=== PATIENT | female | born 2000 ===

== ENCOUNTER 2021-12-08 12:05 | Emergency (ER) | payer OTHER, SELFPAY ==
--- NOTE | ~2021-12-08 | US_ITS ---
EXAMINATION: US OBSTETRICAL ULTRASOUND CLINICAL INFORMATION: Pain and bleeding. Quantitative beta hCG 9560 COMPARISON: None. LMP: 11/05/2021. Gestational age by maternal dates is 4 weeks 5 days. Estimated date of delivery by maternal dates is 08/12/2022. TECHNIQUE: Transabdominal and transvaginal first trimester OB ultrasound FINDINGS: The uterus is normal in size. There is question of arcuate or septate-type uterus. There is an intrauterine gestational sac. [place]-rump length measures 0.2 cm suggesting gestational age of 5 weeks 6 days with estimated date of delivery of 08/04/2022. No heart activity is seen. This may be secondary to early gestational age. There is a yolk sac. The right maternal ovary measures 3 x 2.1 x 2.4 cm. There is a 1.7 x 1.6 x 2 cm right ovarian simple cyst. The left ovary measures 2.1 x 1 x 2 cm and is normal-appearing. There is a small amount of fluid in the pelvis. US/US OB <= 14 weeks fetus IMPRESSION: 1. Single intrauterine gestation with ultrasound gestational age of 5 weeks 6 days +/- 4 days. 2. Estimated date of delivery is 08/04/2022 +/- 4 days. No heart activity is seen. This may be secondary to early gestational age. Question septate or arcuate-type uterus.
--- NOTE | ~2021-12-08 | US_ITS ---
EXAMINATION: US OBSTETRICAL ULTRASOUND CLINICAL INFORMATION: Pain and bleeding. Quantitative beta hCG 9560 COMPARISON: None. LMP: 11/05/2021. Gestational age by maternal dates is 4 weeks 5 days. Estimated date of delivery by maternal dates is 08/12/2022. TECHNIQUE: Transabdominal and transvaginal first trimester OB ultrasound FINDINGS: The uterus is normal in size. There is question of arcuate or septate-type uterus. There is an intrauterine gestational sac. Onset-rump length measures 0.2 cm suggesting gestational age of 5 weeks 6 days with estimated date of delivery of 08/04/2022. No heart activity is seen. This may be secondary to early gestational age. There is a yolk sac. The right maternal ovary measures 3 x 2.1 x 2.4 cm. There is a 1.7 x 1.6 x 2 cm right ovarian simple cyst. The left ovary measures 2.1 x 1 x 2 cm and is normal-appearing. There is a small amount of fluid in the pelvis. US/US OB transvaginal IMPRESSION: 1. Single intrauterine gestation with ultrasound gestational age of 5 weeks 6 days +/- 4 days. 2. Estimated date of delivery is 08/04/2022 +/- 4 days. No heart activity is seen. This may be secondary to early gestational age. Question septate or arcuate-type uterus.
[2021-12-08 12:18] VITALS: BP 122/74; PULSE 103; RESP 18; TEMP 36.8; O2SAT 99; BMI 29.2
[2021-12-08 12:40] LABS: MANUAL DIFF FLAG NO
[2021-12-08 12:42] LABS: Appearance Urine CLEAR; Color Urine YELLOW; Glucose Urine UA NEG (NEG); Leukocyte Esterase Urine NEG (NEG); Nitrite Urine NEG (NEG); Specific Gravity - Urine <= 1.005 (1.005-1.025); Urine Blood NEG (NEG); Urine Ketones NEG (NEG); Urine Protein NEG (NEG-TRACE)
[2021-12-08 12:42] LABS: Basophils Absolute Auto 0.1 X10*3/uL (0.0-0.2); Basophils Percent Auto 0.5 % (0-2); Eosinophils Absolute Auto 0.5 X10*3/uL (0.0-0.4); Eosinophils Percent Auto 5.2 % (0-4); Hemoglobin 13.4 g/dl (12.0-16.0); Imm Gran Abs Auto 0.04 X10*3/uL (0.00-0.03); Imm Gran Pct Auto 0.4 % (0.0-0.4); Lymphocytes Absolute Auto 2.1 X10*3/uL (1.2-4.9); Lymphocytes Percent Auto 22.4 % (20-40); Mean Corpuscular HGB Conc 32.7 g/dl (31.0-35.0); Mean Corpuscular Hemoglobin 29.5 pg (27.0-33.0); Mean Corpuscular Volume 90.3 fL (80.0-98.0); Mean Platelet Volume 10.2 fL (9.4-12.3); Monocytes Absolute Auto 0.7 X10*3/uL (0.1-1.2); Monocytes Percent Auto 7.7 % (2-11); Neutrophils Percent Auto 63.8 % (45-73); Platelet Count 312 X10*3/uL (160-400); Red Blood Count 4.54 X10*6/uL (4.20-5.50); Red Cell Distribution Width 12.3 % (11.0-16.0); White Blood Count 9.4 X10*3/uL (4.8-10.8)
[2021-12-08 12:56] LABS: Anion Gap 11 (12-20); Blood Urea Nitrogen 7 mg/dL (9-16); Calcium 9.7 mg/dL (8.4-10.2); Carbon Dioxide 25 mmol/L (22-29); Chloride 106 mmol/L (96-108); Creatinine Clr Calc Pharmacy 104.6; Estimated Glomerular Filt Rate > 60; Glucose Random 84 mg/dL (60-115); Potassium 4.2 mmol/L (3.3-5.1); Sodium 138 mmol/L (135-145)
[2021-12-08 13:04] LABS: HCG Quantitative 9560 mIU/mL
--- NOTE | 2021-12-08 15:25 | ED_ITS ---
HPI - Female Genitourinary General Chief complaint: Abdominal Pain Stated complaint: 5 wks preg/ vaginal bleeding Time Seen by Provider: 12/08/21 12:08 Source: patient Mode of arrival: ambulatory Limitations: no limitations History of Present Illness HPI Narrative: LMP 11/06 no issues prior other than anemia MD elicited complaint: vaginal bleeding (spotting) Onset (ago): day(s) (occurred with wiping this AM) Severity: mild Vaginal bleeding: scant Exacerbating factors: none Relieving factors: none Associated symptoms: denies other symptoms Treatment prior to arrival: none Sexual activity: Yes Patient : Yes Related Data Allergies Allergy/AdvReac Type Severity Reaction Status Date / Time Penicillins [PENICILLINS] Allergy Intermediate HIVES Verified 10/02/20 07:53 ceftriaxone [CEFTRIAXONE] Allergy Unknown HIVES SOB, Verified 10/02/20 07:53 anaphylaxis cinnamon [CINNAMON] Allergy Unknown HIVES Unverified 08/08/20 17:40 penicillin G Allergy Unknown anaphylaxis Verified 10/02/20 07:53 Review of Systems Review of Systems: Constitutional : No Fever, No Chills ENT/Mouth : No sore throat, No Rhinorrhea Eyes: No Eye Pain, No Redness Cardiovascular : No Chest Pain, No SOB Respiratory : No Cough, No Sputum, No Wheezing Gastrointestinal : no Nausea, No Vomiting, No Diarrhea, no abdominal pain, Genitourinary : positive irregular bleeding, No Dysuria, No Urinary Frequency, no pelvic pain Musculoskeletal : No Myalgias Skin : No rash Neuro : No Weakness, No Headache Psych : No Anxiety/Panic, No Depression Heme/Lymph: No bruising, No Lymphadenopathy Endocrine : No Polyuria, No Polydipsia All other systems reviewed and are negative [facility] Past Medical History Attestation statement: The following information was validated with the patient. Medical History Anemia Surgical History (Updated 10/02/20 @ 07:53 by GAGE Morrison) History of wisdom tooth extraction Family History Family History (Updated 10/02/20 @ 07:53 by GAGE Morrison) Father No problems noted. Mother No problems noted. Social History Social History (Updated 12/08/21 @ 15:37 by Lilliana Gaspar DO) Patient Tobacco Use Status: Never used Tobacco Advance Directives: No Advance Directives Information Provided: No Patient : Yes Physical Exam Vital Signs: Vital Signs: Last Vital Signs Temp 98.2 F 12/08/21 12:18 Pulse 103 H 12/08/21 12:18 Resp 18 12/08/21 12:18 BP 122/74 12/08/21 12:18 Pulse Ox 99 12/08/21 12:18 BMI result Body Mass Index 29.2 Appearance: Alert. Oriented X3. No acute distress. Eyes: Pupils equal, round and reactive to light. ENT: Pharynx normal. Neck: Normal inspection. Neck supple. CVS: Normal heart rate and rhythm. Pulses normal. Respiratory: No respiratory distress. Breath sounds normal. Abdomen: Soft and nontender. : deferred at this time due to room capacity - in US no bleeding noted Skin: Skin warm and dry. Normal skin color. Normal skin turgor. Extremities: No lower extremity edema. No calf ttp Neuro: Oriented X 3. No motor deficit. No sensory deficit. Course Course Course Narrative: Rh positive - no need for rhogam MDM - Female Genitourinary MDM Narrative Medical decision making narrative: 21 yo female - here with spotting this AM no clots, no pain, not toxic exam at this time Rh status, quant and US to evaluate for ectopic - send home with precautions and OB follow up Lab Data Result diagrams: 12/08/21 12:29 12/08/21 12:29 Labs: Lab Results 12/08/21 12/08/21 12/08/21 Range/Units 12:29 12:29 12:29 WBC 9.4 (4.8-10.8) X10*3/uL RBC 4.54 (4.20-5.50) X10*6/uL Hgb 13.4 (12.0-16.0) g/dl Hct 41.0 (37.0-47.0) % MCV 90.3 (80.0-98.0) fL MCH 29.5 (27.0-33.0) pg MCHC 32.7 (31.0-35.0) g/dl RDW 12.3 (11.0-16.0) % Plt Count 312 (160-400) X10*3/uL MPV 10.2 (9.4-12.3) fL Immature Gran % (Auto) 0.4 (0.0-0.4) % Neut % (Auto) 63.8 (45-73) % Lymph % (Auto) 22.4 (20-40) % [place] % (Auto) 7.7 (2-11) % Eos % (Auto) 5.2 H (0-4) % Baso % (Auto) 0.5 (0-2) % Lymph # (Auto) 2.1 (1.2-4.9) X10*3/uL [place] # (Auto) 0.7 (0.1-1.2) X10*3/uL Eos # (Auto) 0.5 H (0.0-0.4) X10*3/uL Baso # (Auto) 0.1 (0.0-0.2) X10*3/uL Abs Immat Gran (auto) 0.04 H (0.00-0.03) X10*3/uL Absolute Neuts (auto) 6.0 (2.0-8.3) x10*3/uL Absolute Nucleated RBC 0.000 (0.0-0.012) X10*3/uL Nucleated RBC % (auto) 0.0 (0.0-0.2) /100WBC Sodium 138 (135-145) mmol/L Potassium 4.2 (3.3-5.1) mmol/L Chloride 106 (96-108) mmol/L Carbon Dioxide 25 (22-29) mmol/L Anion Gap 11 L (12-20) BUN 7 L (9-16) mg/dL Creatinine 0.78 (0.5-1.4) mg/dL Estim Creat Clear Calc 104.6 Estimated GFR > 60 Random Glucose 84 (60-115) mg/dL Calcium 9.7 (8.4-10.2) mg/dL Beta HCG, Quant 9560 mIU/mL Urine Color Urine Appearance Urine pH (5.0-8.0) Ur Specific [place] (1.005-1.025) Urine Protein (NEG-TRACE) MG/DL Urine Glucose (UA) (NEG) MG/DL Urine Ketones (NEG) MG/DL Urine Blood (NEG) Urine Nitrite (NEG) Ur Leukocyte Esterase (NEG) Blood Type B Positive 12/08/21 Range/Units 12:35 WBC (4.8-10.8) X10*3/uL RBC (4.20-5.50) X10*6/uL Hgb (12.0-16.0) g/dl Hct (37.0-47.0) % MCV (80.0-98.0) fL MCH (27.0-33.0) pg MCHC (31.0-35.0) g/dl RDW (11.0-16.0) % Plt Count (160-400) X10*3/uL MPV (9.4-12.3) fL Immature Gran % (Auto) (0.0-0.4) % Neut % (Auto) (45-73) % Lymph % (Auto) (20-40) % [place] % (Auto) (2-11) % Eos % (Auto) (0-4) % Baso % (Auto) (0-2) % Lymph # (Auto) (1.2-4.9) X10*3/uL [place] # (Auto) (0.1-1.2) X10*3/uL Eos # (Auto) (0.0-0.4) X10*3/uL Baso # (Auto) (0.0-0.2) X10*3/uL Abs Immat Gran (auto) (0.00-0.03) X10*3/uL Absolute Neuts (auto) (2.0-8.3) x10*3/uL Absolute Nucleated RBC (0.0-0.012) X10*3/uL Nucleated RBC % (auto) (0.0-0.2) /100WBC Sodium (135-145) mmol/L Potassium (3.3-5.1) mmol/L Chloride (96-108) mmol/L Carbon Dioxide (22-29) mmol/L Anion Gap (12-20) BUN (9-16) mg/dL Creatinine (0.5-1.4) mg/dL Estim Creat Clear Calc Estimated GFR Random Glucose (60-115) mg/dL Calcium (8.4-10.2) mg/dL Beta HCG, Quant mIU/mL Urine Color YELLOW Urine Appearance CLEAR Urine pH 6.0 (5.0-8.0) Ur Specific [place] <= 1.005 (1.005-1.025) Urine Protein NEG (NEG-TRACE) MG/DL Urine Glucose (UA) NEG (NEG) MG/DL Urine Ketones NEG (NEG) MG/DL Urine Blood NEG (NEG) Urine Nitrite NEG (NEG) Ur Leukocyte Esterase NEG (NEG) Blood Type Discharge Plan Discharge Clinical Impression: , threatened Patient Disposition: Home, Self-Care Instructions: Threatened Miscarriage (ED) Additional Instructions: return to ED for any worsening symptoms or concerns no sex for 1 week blood type B positive hcg quant 9560 call your OBGYN and repeat hormone level in 2 to 3 days to make sure they are increasing US report: 1. Single intrauterine gestation with ultrasound gestational age of? 5 weeks 6 days +/- 4 days. 2. Estimated date of delivery is 08/04/2022 +/- 4 days. No heart activity is seen. This may be secondary to early gestational age. Question septate or arcuate-type uterus. Stand Alone Forms: Work/School Release Interventions: ED Discharge Assessment Last Done: 12/08/21 17:10 Discharge Date/Time: 12/08/21 17:37
== END 2021-12-08 17:37 | disposition home or self-care (01) ==
LOC: HO.ED 17:12
PROVIDERS: Emergency Provider Emergency Medicine; PCP Internal Medicine
DX: O20.0 Threatened abortion (principal); Z3A.01 Less than 8 weeks gestation of pregnancy
CPT/HCPCS: 36415; 76801; 76817; 80048; 81003; 84702; 85025; 86900; 86901; 99283; 99284

== ENCOUNTER 2022-10-28 11:24 | Outpatient (REF) | payer OTHER, SELFPAY ==
[2022-10-28 12:12] LABS: Influenza A PCR NEGATIVE (Negative); Influenza B PCR NEGATIVE (Negative); Resp Syncy Virus RNA Qual PCR NEGATIVE (Negative); SARS COV2 PCR INHOUSE NEGATIVE (Negative)
== END 2022-10-28 11:25 | disposition home or self-care (01) ==
LOC: HO.LNP 11:24
PROVIDERS: Visit Provider Nurse Practitioner Family
DX: R09.89 Other specified symptoms and signs involving the circulatory and respiratory systems (principal); J02.9 Acute pharyngitis, unspecified; Z20.822 Contact with and (suspected) exposure to COVID-19
CPT/HCPCS: 0241U

== ENCOUNTER 2023-03-15 13:38 | Outpatient (REF) | payer OTHER, SELFPAY ==
--- NOTE | ~2023-03-15 | XR_ITS ---
Examination: Right elbow and right wrist. Clinical indications: Right wrist pain and right elbow pain. TECHNIQUE: 3 views of right elbow and 4 views of right wrist. FINDINGS: RIGHT WRIST: There is maintained intercarpal, radioulnar-carpal and carpometacarpal joint space. No bony erosive changes. No loose bodies. No acute fracture or dislocation. The soft tissues are normal. RIGHT ELBOW: There is no visible acute fracture, dislocation or subluxation. No joint effusion. The soft tissues are normal. XR/XR elbow RT 2V IMPRESSION: Unremarkable right wrist. Unremarkable right elbow.
--- NOTE | ~2023-03-15 | XR_ITS ---
Examination: Right elbow and right wrist. Clinical indications: Right wrist pain and right elbow pain. TECHNIQUE: 3 views of right elbow and 4 views of right wrist. FINDINGS: RIGHT WRIST: There is maintained intercarpal, radioulnar-carpal and carpometacarpal joint space. No bony erosive changes. No loose bodies. No acute fracture or dislocation. The soft tissues are normal. RIGHT ELBOW: There is no visible acute fracture, dislocation or subluxation. No joint effusion. The soft tissues are normal. XR/XR wrist RT 2V IMPRESSION: Unremarkable right wrist. Unremarkable right elbow.
== END 2023-03-15 13:39 | disposition home or self-care (01) ==
LOC: HO.XRAY 13:38
PROVIDERS: PCP Internal Medicine; Visit Provider Internal Medicine
DX: M25.521 Pain in right elbow (principal); M25.531 Pain in right wrist
CPT/HCPCS: 73070; 73100

== ENCOUNTER 2023-04-08 10:00 | Outpatient (RCR) | payer OTHER, SELFPAY ==
--- NOTE | 2023-03-18 15:22 | MHC.OT.EP ---
[address] [phone] Occupational Therapy Plan of Care Patient Name: Viola Dudley Date of Evaluation: 03/18/23 Diagnosis: Right forearm tendonitis Pain Location: 8-9 elbow to wrist. Pressure. Stabbing, aching Pain Score: 8 Pain Scale Used: Numeric (0 - 10) Aggravating Factors: Any hand or wrist motion. Any use of right dominant hand Alleviating Factors: Tramadol at night .CP Assessment: Pt is a 22 yo female with right upper extremity stiffness and pain due to an over use injury with home and work tasks. She reports inc weight in her 7 month old daugther and self imposed increased work load due to financial incentive contributing to this repetitive strain injury. Pt demonstrates a good improvement in wrist and hand AROM after practice to WFL with slow guarded motion. Strength is low due to pain. 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 Thank you once again for your referral.
--- NOTE | 2023-05-07 14:56 | MHC.OT.DC ---
[address] [phone] F: [phone] Occupational Therapy Discharge Note Patient Name: Viola Dudley Provider: Mark Garay Diagnosis: Right forearm tendonitis Date of Surgery: Date of Evaluation: 03/18/23 Date of Discharge: 05/07/23 Treatments to Date: 2 Cancellations to Date: No Shows to Date: 2 Discharge Status: Visit Non-compliance Discharge Summary: Pt with complaint of high pain with a long lapse in treatment due to pt no show . Wrist and hand AROM WFL Electronically Signed By: Renae Cloud OT CHT CLT Reviewed/agree with student documentation: Therapist: Please Sign and return to therapist, thank you for your referral.
== END 2023-05-07 14:57 | disposition home or self-care (01) ==
LOC: HO.OT 10:00
PROVIDERS: PCP Internal Medicine; Visit Provider Internal Medicine
DX: M77.8 Other enthesopathies, not elsewhere classified (principal)
CPT/HCPCS: 97035; 97110; 97166

== ENCOUNTER 2023-06-23 11:44 | Outpatient (AMB) | payer OTHER, SELFPAY ==
--- NOTE | 2023-06-23 11:46 | A.OFFPC_ITS ---
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 Platform Consultant: Not Required per policy Accompanied by: Self / Same As Patient Allergies Penicillins [PENICILLINS] Allergy (Intermediate, Verified 06/23/23 11:47) HIVES ceftriaxone [CEFTRIAXONE] Allergy (Unknown, Verified 06/23/23 11:47) HIVES SOB, anaphylaxis cinnamon [CINNAMON] Allergy (Unknown, Verified 06/23/23 11:47) HIVES penicillin G Allergy (Unknown, Verified 06/23/23 11:47) anaphylaxis Medication List - Last Reconciled 06/23/23 by Mark Garay MD meloxicam 15 mg PO DAILY [right arm sling As directed] tramadol 50 mg PO Q8H PRN Tobacco use date assessed: 06/23/23 Dental Screening Dental Screen Date: 06/23/23 Did you have a dental visit in the last 12 months?: Yes Did you have a dental problem in the last 6 months where you did not have access to dental care?: No Was dental information given to patient?: Patient has dentist HPI Back pain due to injury HPI Details injured upper and lower back at work lifting PFSH Medical History Anemia Surgical History History of wisdom tooth extraction Family History (Updated 06/23/23 @ 11:46 by GAGE Cruz) Father No problems noted. Mother No problems noted. Social History Housing: Apartment Patient Tobacco Use Status: Never used Tobacco e-Cigarette/Vaping Use: Never Used Second Hand Smoke Exposure: No service: No Current occupational status: employed Current occupational exposures/hazards: No Cognitive needs: No Hearing needs: No Vision needs: Yes Questionnaire PHQ-9 Over the last 2 weeks, how often have you been bothered by any of the following problems? Depression Screening Interpretation: Negative Source: Developed by Drs. Lennox Prasad, Anabella Diaz, Maurice Davis and colleagues, with an educational medina from [employer]. Thrive Questionnaire Date Thrive assessed: 02/23/23 Currently or been in a relationship where the following occur: no concerns reported ANTOINETTE-7 AMB Questionnaire ANTOINETTE-7 Date ANTOINETTE - 7 assessed: 02/23/23 Source: Developed by Drs. Lennox Prasad, Anabella Diaz, Maurice Davis and colleagues, with an educational medina from [employer]. Review of Systems Const Denies chills, Denies headache(s) and Denies weight loss ENT Denies headache(s) Card Denies chest pain, Denies syncope, Denies irregular heart rhythm and Denies dyspnea Resp Denies chest congestion, Denies cough and Denies dyspnea GI Denies abdominal pain, Denies change in stool character, Denies nausea and Denies vomiting Musc Denies deformity and Denies joint swelling Neuro Denies syncope and Denies headache(s) Physical exam (Primary Care) Vital Signs: Last Vital Signs Pulse 105 H 06/23/23 11:48 BP 110/76 06/23/23 11:48 Pulse Ox 97 06/23/23 11:48 Oxygen Delivery Method Room Air 06/23/23 11:48 BMI result Body Mass Index 34.9 Tobacco/Smoking Status: Tobacco use Status Tobacco use date assessed 06/23/23 06/23/23 11:52 Patient Tobacco Use Status Never used Tobacco 06/23/23 11:52 e-Cigarette/Vaping Use Never Used 06/23/23 11:52 Depression Screening Interpretation: Negative Thrive Assessment: Date of Thrive Assessment Date Thrive assessed 02/23/23 06/23/23 11:52 Currently or been in a relationship where the following occur: no concerns reported Const General: cooperative, comfortable and no acute distress HENMT Head: Yes normal to inspection Neck Neck: Yes normal visual inspection Chest Chest palpation & inspection: normal inspection of the chest Resp Effort & Inspection: normal respiratory effort Auscultation: clear to auscultation bilaterally Percussion: percussion normal Assessment and Plan Assessment & Plan (1) Upper back pain: Code(s): M54.9 - Dorsalgia, unspecified Plan: hot packs and rx Medications: New cyclobenzaprine 10 mg PO TID 30 tabs 2RF muscle spasm Refilled tramadol 50 mg PO Q8H PRN 20 tabs 0RF pain Coding Level of Care Code Est Pt Level 3 (93786) Diagnoses Upper back pain M54.9
[2023-06-23 11:48] VITALS: BP 110/76; PULSE 105; O2SAT 97; BMI 34.9
== END 2023-06-23 12:12 | disposition home or self-care (01) ==
PROVIDERS: PCP Internal Medicine; Visit Provider Internal Medicine
DX: M54.9 Dorsalgia, unspecified (principal)
CPT/HCPCS: 99213

== ENCOUNTER 2024-11-24 12:59 | Outpatient (AMB) | payer OTHER, SELFPAY ==
--- NOTE | 2024-11-24 13:04 | MHC.PC.OV ---
Vital Signs 11/24/24 13:06 Height 5 ft 2 in Weight 182 lb 8 oz BMI 33.4 BP 120/76 Blood Pressure Location Lt brachial Position Sitting Pulse 87 Pulse Source Pulse Oximeter Pulse Oximetry (%) 98 Oxygen Delivery Method Room Air Intake Visit Reasons: Annual PE Intake Note: Patient is here today for a physical. Pt decline flu shot today. 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: No Plugging Machine Operator: Not Required per policy Accompanied by: Self / Same As Patient Allergies Penicillins [PENICILLINS] Allergy (Intermediate, Verified 11/24/24 13:06) HIVES ceftriaxone [CEFTRIAXONE] Allergy (Unknown, Verified 11/24/24 13:06) HIVES SOB, anaphylaxis cinnamon [CINNAMON] Allergy (Unknown, Verified 11/24/24 13:06) HIVES penicillin G Allergy (Unknown, Verified 11/24/24 13:06) anaphylaxis Tobacco use date assessed: 11/24/24 Dental Screening Dental Screen Date: 11/24/24 Did you have a dental visit in the last 12 months?: Yes Did you have a dental problem in the last 6 months where you did not have access to dental care?: No Was dental information given to patient?: Patient has dentist HPI Annual PE HPI Details healthy [facility] Medical History Anemia Surgical History History of wisdom tooth extraction Family History Father No problems noted. Mother No problems noted. Social History (Updated 11/24/24 @ 13:09 by GAGE Cruz) Housing: Apartment Alcohol intake: never Patient Tobacco Use Status: Never used Tobacco e-Cigarette/Vaping Use: Never Used Second Hand Smoke Exposure: No service: No Current occupational status: employed Current occupational exposures/hazards: No Cognitive needs: No Hearing needs: No Vision needs: Yes Questionnaire PHQ-9 Over the last 2 weeks, how often have you been bothered by any of the following problems? 1. Little interest or pleasure in doing things: not at all 2. Feeling down, depressed, or hopeless: not at all 3. Trouble falling or staying asleep, or sleeping too much: several days 4. Feeling tired or having little energy: several days 5. Poor appetite or overeating: several days 6. Feeling bad about yourself - or that you are a failure or have let yourself or your family down: several days 7. Trouble concentrating on things, such as reading the newspaper or watching television: not at all 8. Moving or speaking so slowly that other people could have noticed. Or the opposite - being so fidgety or restless that you have been moving around a lot more than usual: not at all 9. Thoughts that you would be better off or of hurting yourself in some way: not at all Total score: 4 Depression Screening Interpretation: Positive Depression Screening Done: Yes Source: Developed by Drs. Lennox Prasad, Anabella Diaz, Maurice Davis and colleagues, with an educational medina from [employer]. Thrive Questionnaire Date Thrive assessed: 11/24/24 I am a: Patient What is your living situation today?: I have a steady place to live Within the past 12 months, did the food you bought not last and you didn't have the money to get more?: Sometimes True Within the past 12 months, did you worry whether your food would run out before you got money to buy more?: Sometimes True Do you have trouble paying for medicines?: No Do you have trouble getting transportation to medical appointments?: No Do you have trouble paying your heating and electricity bill?: No Do you have trouble taking care of your child, family member or friend?: No Do you have trouble with day-to-day activities such as bathing, preparing meals, shopping, managing finances, etc.?: No Are you currently unemployed and looking for a job?: No Are you interested in more education?: Yes Please select the resources that you would like help with: Food, Utilities and Childcare Currently or been in a relationship where the following occur: No concerns reported THRIVE Score: 2 AUDIT C Alcohol Use Questionnaire (AUDIT-C) 1. How often do you have a drink containing alcohol?: Never Total Score: 0 ANTOINETTE-7 AMB Questionnaire ANTOINETTE-7 Date ANTOINETTE - 7 assessed: 11/24/24 Feeling nervous, anxious, or on edge: 2 = More than half the days Not being able to stop or control worryin = More than half the days Worrying too much about different things: 2 = More than half the days Trouble relaxin = More than half the days Being so restless that it is hard to sit still: 0 = Not at all Becoming easily annoyed or irritable: 3 = Nearly every day Feeling afraid as if something awful might happen: 0 = Not at all Total ANTOINETTE-7 score (0-4 normal; 5-9 mild; 10-14 moderate; 15-21 severe): 11 Source: Developed by Drs. Lennox Prasad, Anabella Diaz, Maurice Davis and colleagues, with an educational medina from [employer]. Review of Systems Const Denies chills, Denies fatigue, Denies headache(s) and Denies weight loss Eyes Denies change in vision, Denies diplopia and Denies eye pain ENT Denies vertigo, Denies dizziness, Denies headache(s) and Denies nasal discharge Card Denies chest pain, Denies rapid heart rate and Denies dyspnea on exertion Resp Denies chest congestion, Denies cough, Denies pain with cough and Denies dyspnea on exertion GI Denies abdominal pain, Denies hematochezia and Denies change in bowel habits Musc Denies myalgias, Denies arthralgias and Denies joint swelling Skin/Breast Denies lesions and Denies unusual bruising Neuro Denies vertigo, Denies dizziness, Denies headache(s) and Denies focal weakness Endo Denies fatigue Physical exam (Primary Care) Vital Signs: Last Vital Signs Pulse 87 11/24/24 13:06 BP 120/76 11/24/24 13:06 Pulse Ox 98 11/24/24 13:06 Oxygen Delivery Method Room Air 11/24/24 13:06 BMI result Body Mass Index 33.4 Tobacco/Smoking Status: Tobacco use Status Tobacco use date assessed 11/24/24 11/24/24 13:10 Patient Tobacco Use Status Never used Tobacco 11/24/24 13:10 e-Cigarette/Vaping Use Never Used 11/24/24 13:10 PHQ-9: PHQ-9 Score PHQ-9: Total score 4 11/24/24 13:10 Depression Screening Interpretation: Positive Thrive Assessment: Date of Thrive Assessment Date Thrive assessed 11/24/24 11/24/24 13:10 Currently or been in a relationship where the following occur: No concerns reported Const General: cooperative, healthy appearing and no acute distress Orientation/consciousness: oriented to person, oriented to place and oriented to time HENMT Head: Yes normal to inspection, Yes normocephalic and Yes atraumatic Mouth: Normal oral and palatal mucosa present and tongue normal Throat: Yes posterior oropharynx normal and Yes uvula midline Eyes General: appearance normal, both eyes and all related structures Neck Neck: Yes normal visual inspection, Yes full ROM and Yes no lymphadenopathy Thyroid: Thyroid normal Carotids: normal carotid upstroke Chest Chest palpation & inspection: normal inspection of the chest Resp Effort & Inspection: normal respiratory effort and able to speak in complete sentences Auscultation: clear to auscultation bilaterally Cardio Jugular venous distension: no JVD Palpation: normal PMI Rate: regular rate Rhythm: regular rhythm Heart sounds: S1 normal heart sound present and S2 normal heart sound present GI Inspection: Yes normal to inspection Palpation (GI): Soft to palpation and No hepatosplenomegaly present Auscultation: normal bowel sounds General: Yes no CVA tenderness Back/Spine/Pelvis Back: no CVA tenderness Skin General skin exam: no rashes or lesions noted Neuro General: oriented to person, oriented to place and oriented to time Extrem General: Yes normal to inspection and Yes full ROM Coding Level of Care Code Est Pt Prev Care 18-39y(33410) Diagnoses Physical exam Z00.00 Assessment & Plan Assessment & Plan (1) Physical exam: Code(s): Z00.00 - Encounter for general adult medical examination without abnormal findings Category: Medical Plan: healthy; do labs Orders: Orders Comprehensive [place]. Panel Fast Today Z13.9 - Encounter for screening, unspecified Lipid Panel Today Z13.220 - Encounter for screening for lipoid disorders Thyroid Stimulating Hormone Today Z13.29 - Encounter for screening for other suspected endocrine disorder Complete Blood Count Auto Diff Today Z13.0 - Encounter for screening for diseases of the blood and blood-forming organs and certain disorders involving the immune mechanism
[2024-11-24 13:06] VITALS: BP 120/76; PULSE 87; O2SAT 98; BMI 33.4
== END 2024-11-24 13:42 | disposition home or self-care (01) ==
PROVIDERS: PCP Internal Medicine; Visit Provider Internal Medicine
DX: Z00.00 Encounter for general adult medical examination without abnormal findings (principal)

== ENCOUNTER → 2024-11-24 12:59 | Outpatient (BNVA) | payer OTHER, SELFPAY | PROVIDERS: PCP Internal Medicine; Visit Provider Internal Medicine | DX: Z00.00 Encounter for general adult medical examination without abnormal findings (principal) | CPT/HCPCS: 99395 ==

== ENCOUNTER 2025-03-27 12:02 | Outpatient (AMB) | payer OTHER, SELFPAY ==
[2025-03-27 13:29] VITALS: BP 118/72; PULSE 73; TEMP 36.5; O2SAT 98; BMI 33.3
--- NOTE | 2025-03-27 13:29 | MHC.OFFWIV ---
Intake Vital Signs 03/27/25 13:29 Height 5 ft 2 in Weight 182 lb BMI 33.3 BP 118/72 Blood Pressure Location Lt brachial Position Sitting Pulse 73 Pulse Source Pulse Oximeter Temp 97.7 F Temp Source Oral Pulse Oximetry (%) 98 Intake Visit Reasons: EP asthma, sore throat Patient Tobacco Use Status: Never used Tobacco Allergies Penicillins [PENICILLINS] Allergy (Intermediate, Verified 03/27/25 13:29) HIVES ceftriaxone [CEFTRIAXONE] Allergy (Unknown, Verified 03/27/25 13:29) HIVES SOB, anaphylaxis cinnamon [CINNAMON] Allergy (Unknown, Verified 03/27/25 13:29) HIVES penicillin G Allergy (Unknown, Verified 03/27/25 13:29) anaphylaxis Do you need a note to return to daycare/school/sports/work: Yes HPI HPI Comments History of Present Illness Details This is a 24-year-old female with a past medical history of asthma presenting for evaluation of sore throat, hoarseness and increased use of her albuterol inhaler over the past 4 days. Patient denies having any fevers, chills, ear pain, cough or chest pain. She endorses occasional shortness for breath which is resolved by using her rescue inhaler. [facility], [facility] Medical History Anemia Surgical History History of wisdom tooth extraction Family History Father No problems noted. Mother No problems noted. Social History (Updated 11/24/24 @ 13:09 by GAGE Cruz) Housing: Apartment Alcohol intake: never Patient Tobacco Use Status: Never used Tobacco e-Cigarette/Vaping Use: Never Used Second Hand Smoke Exposure: No service: No Current occupational status: employed Current occupational exposures/hazards: No Cognitive needs: No Hearing needs: No Vision needs: Yes Review of Systems Const All systems reviewed & are unremarkable except as noted in HPI and below Denies headache(s) Eyes Reports no additional complaints ENT Reports no additional complaints, Denies otalgia, Denies headache(s), Reports hoarseness, Denies odynophagia, Denies sinus pressure and Reports sore throat Card Reports no additional complaints, Reports dyspnea and Denies dyspnea on exertion Resp Denies no additional complaints, Denies cough, Denies hemoptysis, Denies excessive phlegm production, Reports dyspnea and Denies dyspnea on exertion GI Reports no additional complaints and Denies odynophagia Reports no additional complaints Musc Reports no additional complaints Skin/Breast Reports system reviewed and no additional complaints, except as documented Neuro Reports no additional complaints and Denies headache(s) Psych Reports no additional complaints Endo Reports no additional complaints Bert/Lymph Reports no additional complaints Aller/Immun Reports no additional complaints Physical Exam Vital Signs: Last Vital Signs Temp 97.7 F 03/27/25 13:29 Pulse 73 03/27/25 13:29 BP 118/72 03/27/25 13:29 Pulse Ox 98 03/27/25 13:29 BMI result Body Mass Index 33.3 Const General: cooperative, healthy appearing, comfortable, no acute distress, well developed, alert, awake and Physically active Nutritional Appearance: average body habitus Orientation/consciousness: patient oriented x3 Limitations: no limitations HEENT Head: Yes normal to inspection and Yes normocephalic Ears: hearing grossly normal bilaterally, external ears normal, TM's normal bilaterally and EAC's normal General nose exam: Normal external nose present Face and sinus: Yes normal facial exam and Yes sinuses nontender Mouth: Normal oral and palatal mucosa present and oropharynx normal Teeth and gingiva: dentition normal Throat: Yes posterior oropharynx normal, Yes uvula midline and No postnasal drainage Eyes General: appearance normal, both eyes and all related structures Neck Lymphatic: no lymphadenopathy noted Resp Effort & Inspection: normal respiratory effort, able to speak in complete sentences, no audible wheezes and no cough Auscultation: wheezes expiratory wheezes and lower bilaterally Cardio Rate: regular rate Rhythm: regular rhythm Skin General skin exam: no rashes or lesions noted Neuro General: patient oriented x3 Psych Appearance: grossly normal Mental Status: mental status grossly normal Insight: Good insight present (Psych) Judgement: Good judgement present (Psych) Results AMB Rapid Strep AMB Rapid Strep Negative Last Edit by Zeferino Lane CMA on 03/27/25 13:54 Results Reviewed Results Reviewed: Laboratory Last Values Strep Scn Rapid Clinic Negative 03/27/25 13:53 Assessment & Plan Assessment & Plan (1) Pharyngitis: Comment: Rapid strep test is negative. Code(s): J02.9 - Acute pharyngitis, unspecified Qualifiers: Pharyngitis/tonsillitis etiology: unspecified etiology Qualified Code(s): J02.9 - Acute pharyngitis, unspecified Plan: Ibuprofen 600 mg every 6-8 hours as needed for discomfort, increase clear fluids daily. (2) Asthma exacerbation: Comment: Patient is not hypoxic or tachypneic however she is utilizing her rescue inhaler every 4-6 hours which is significantly unusual for her. Code(s): J45.901 - Unspecified asthma with (acute) exacerbation Qualifiers: Asthma severity: unspecified severity Asthma persistence: unspecified Qualified Code(s): J45.901 - Unspecified asthma with (acute) exacerbation Plan: Prednisone 40mg burst x 4 days. Orders: Orders AMB Rapid Strep Screen Today Z13.9 - Encounter for screening, unspecified Medications: New prednisone 40 mg (2 x 20 mg) PO DAILY 8 tabs 0RF Coding Level of Care Code Est Pt Level 3 (04541) Diagnoses Pharyngitis, unspecified etiology J02.9 Pharyngitis/tonsillitis etiology: unspecified etiology Exacerbation of asthma, unspecified asthma severity, unspecified whether persistent J45.901 Asthma severity: unspecified severity Asthma persistence: unspecified Time Spent (min) 20
--- OUTSIDE RECORDS SUMMARY | 2025-03-27 13:33 | XMS_ITS | Encounter Summary ---
Author Organization [facility] Address [address] [place] [id number] Care Team Providers Care Telecommunication Systems Designer Name Role Phone Unknown Primary Care Provider [phone] Encounter Details Date Type Department Care Team (Latest Contact Info) Description 06/15/2022 Hospital Encounter Raj Freed MD [address] [place] [address], [address] Division [place] [address] Social History Tobacco Use Types Packs/Day Years Used Date Smoking Tobacco: Never Smokeless Tobacco: Never AUDIT-C Answer Date Recorded Q1: How often do you have a drink containing alcohol? Never 06/15/2022 Q2: How many drinks containi ng alcohol do you have on a typical day when you are drinking? Patient does not drink Q3: How often do you have si x or more drinks on one occasion? Never 06/15/2022 Comments No Sex and Gender Information Value Date Recorded Sex Assigned at Not on file Legal Sex Female 2:53 PM EDT Gender Identity Not on file Sexual Orientation Not on file COVID-19 Exposure Response Date Recorded In the last 10 days, have yo u been in contact with someone who was confirmed or suspected to have Coronavirus/COVID-19? Yes 06/15/2022 6:01 PM EDT documented as of this encounter Functional Status * Audit-C Score Answer Date of Assessment Author 0 06/15/2022 6:00 PM EDT Miguel Madrid RN * Question Answer Date of Assessment Author Q1: How often do you have a drink containing alcohol? Never 06/15/2022 6:00 PM EDT Rita Madrid RN Q2: How many drinks containing alcohol do you have on a typical day when you are drinking? Patient does not drink 06/15/2022 6:00 PM EDT Rita Madrid RN Q3: How often do you have six or more drinks on one occasion? Never 06/15/2022 6:00 PM EDT Rita Madrid RN documented as of this encounter Plan of Treatment Not on file documented as of this encounter Visit Diagnoses Not on filedocumented in this encounter Additional Health Concerns Infection Onset Date Last Indicated Resolved Time COVID-19 Comment:06/15/2022 + 06/16/2022 06/16/2022 07/06/2022 11:42 PM EDT documented as of this encounter Care Teams Telecommunication Systems Designer Relationship Specialty Start Date End Date Unknown Unknow Provider Address PCP - General 06/15/22 documented as of this encounter
--- OUTSIDE RECORDS SUMMARY | 2025-03-27 13:33 | XMS_ITS ---
Author Name [facility] Organization Unknown Encounters Encounter Type Encounter Reason Primary Diagnosis Location Date Inpatient False labor befo re 37 completed weeks of gestation, unspecified trimester [facility] 06/15/2022 Emergency Covid Positive formerly [facility] 06/15/2022 Care Team Organization Name Specialty Phone Email Start Date End Da te [employer] 06/15/2022 06/15/2022 [employer] 06/15/2022
--- OUTSIDE RECORDS SUMMARY | 2025-03-27 13:33 | XMS_ITS | Encounter Summary ---
Author Organization [facility] Address [address] [place] [address] Phone Care Team Providers Care Spanish Translator Name Role Phone Mark Garay MD Primary Care Provider [phone] Encounter Details Date Type Department Care Team (Late st Contact Info) Description 05/08/2024 Ancillary Orders [facility] [address] [place] [address] America Wilkinson CNM [address], [address] [place] [address] [email or web address] Encounter for supervision of other normal in second trimester (Primary Dx); History of delivery; Request for sterilization; Migraine with aura and without status migrainosus, not intractable Social History Tobacco Use Types Packs/Day Years Used Date Smoking Tobacco: Never Smokeless Tobacco: Never Alcohol Use Standard Drinks/Week Comments Not Currently 0 (1 standard drink = 0.6 oz pur e alcohol) 2/week Education Answer Date Recorded Are you interested in more education? Not on johanna e 03/20/2023 Are you concerned about learning? Not on file 03/20/2023 No 03/20/2023 No 03/20/2023 Digital Access Answer Date Recorded No 04/18/2023 No 04/18/2023 Reliable internet access at home? Not on file 04/18/2023 Device with a working camera? Not on file Comments Yes Sex and Gender Information Value Date Recorded Sex Assigned at Female 05/05/2022 7:35 PM EDT Gender Identity Female 05/05/2022 7:35 PM EDT Sexual Orientation Straight 05/05/2022 7: 35 PM EDT documented as of this encounter Plan of Treatment Upcoming Encounters Date Type Department Care Team (Late st Contact Info) Description 03/29/2025 9:20 AM EDT Office Visit [facility] [address] [place] [address] [place] [address] Noemi Lee MD [address], [address] [place] [address] [email or web address] documented as of this encounter Results * US OB GREATER THAN OR EQUAL TO 14 WEEKS LIMITED (05/08/2024 2:22 PM EDT) Anatomical Region Laterality Modality Abdomen, Pelvis, Uterus/Adnexa U ltrasound 05/08/2024 2:22 PM EDT Impressions 05/08/2024 4:06 PM EDT 1. ??Single live IUP with above dating criteria. 2. ??The cervix measures 3.1 cm and appears closed. Narrative 05/08/2024 4:06 PM EDT Procedure: US OB GREATER THAN OR EQUAL TO 14 WEEKS LIMITED ??05/08/2024 1:57 PM US Indications: History Of Labor; cervical length only. Comparison: No relevant recent comparisons. Maternal age: 23 years. Technique: Transabdominal scan was performed. ??M-mode imaging was performed to assess cardiac activity. FINDINGS: number: ??1 position: Vertex. Placental position: Anterior. ??Placental grade: 1 Heart Rate: ??147.0 bpm Cervix: ??3.1 cm Gestational Age by LMP: 23 weeks 2 day(s) Established ZOILA: ??23 weeks 2 day(s) Limited Assessment: The stomach, kidneys, urinary bladder and four-chamber heart were evaluated and normal. Tech Comments: Raymond . ??Cervix appears long and closed. ??Active fetus with normal fluid. Procedure Note Isidro Dael MD - 05/08/2024 Procedure: US OB GREATER THAN OR EQUAL TO 14 WEEKS LIMITED 05/08/2024 1:57PM US Indications: History Of Labor; cervical length only. Comparison: No relevant recent comparisons. Maternal age: 23 years. Technique: Transabdominal scan was performed. M-mode imaging wasperformed to assess cardiac activity. FINDINGS: number: 1 position: Vertex. Placental position: Anterior. Placental grade: 1 Heart Rate: 147.0 bpm Cervix: 3.1 cm Gestational Age by LMP: 23 weeks 2 day(s) Established ZOILA: 23 weeks 2 day(s) Limited Assessment: The stomach, kidneys, urinary bladder andfour- chamber heart were evaluated and normal. Tech Comments: Raymond . Cervix appears long and closed. Active fetus withnormal fluid. IMPRESSION: 1. Single live IUP with above dating criteria. 2. The cervix measures 3.1 cm and appears closed. America Wilkinson CNM IMG US OBSTETRIC documented in this encounter Visit Diagnoses Diagnosis History of delivery Encounter for supervision of other normal in second trimester- Primary History of delivery Request for sterilization Migraine with aura and without status migrainosus, not intractable documented in this encounter Care Teams Spanish Translator Relationship Specialty Start Date End Date Mark Garay MD [address] [place] [address] Dr ANDINO [address] [place] [id number] PCP - General Internal Medicine 11/25/21 documented as of this encounter Additional Source Comments The information contained in this document represents components of the legal health record. It is not the complete legal health record.[facility]
--- OUTSIDE RECORDS SUMMARY | 2025-03-27 13:33 | XMS_ITS | Clinical Summary ---
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 02/14/2024 Active butalbital-acetamin ophen-caffeine (FIORICET, ESGIC) 50-325-40 mg per tabletIndications:M igraine with aura and without status migrainosus, not intractable Take 1 tablet by mouth every 4 (four) hours as needed for headache. If no relief after 30 min, may take a second tablet (no more than 12 tablets in 24 hr period) 20 tablet 1 04/30/2024 Active vitamins with ferrous fumaric-Folic acid (TOM ) 28 mg iron- 800 mcg TabIndications:Unpl anned Take 1 tablet (0.8 mg total) by mouth daily. 90 tablet 3 07/17/2024 Active FLUoxetine (PROZAC) 20 MG capsule Take 1 capsule (20 mg total) by mouth daily. 30 capsule 1 07/27/2024 Active Additional Information Patient not taking.Reported on 08/28/2024 dibucaine (NUPERCAINAL) 1 % ointment Apply 1 Application topically 2 (two) times a day as needed for pain (specific location in comments) (perineal area). 30 g 08/30/2024 Active hydrocortisone (ANUSOL-HC) 2.5 % rectal cream Place 1 Application rectally as needed. 30 g 08/30/2024 Active ibuprofen (ADVIL,MOTRIN) 600 MG tablet Take 1 tablet (600 mg total) by mouth every 6 (six) hours as needed for pain (specific location in comments). 30 tablet 08/30/2024 Active ferrous sulfate 325 mg (65 mg northway iron) tablet TAKE 1 TABLET BY MOUTH EVERY DAY WITH BREAKFAST 90 tablet 1 10/10/2024 Active Active Problems Problem Noted Date Diagnosed Date Vaginal delivery 08/30/2024 Encounter for induction of labor 08/28/2024 Assessment & Plan (08/28/2024 6:09 PM EDT): A: IOL at 39 2/7 weeks for advance dilation Cat 1 tracing GBS neg P: Admit to CBC CBC, T&S Start IV with LR We discussed that Pitocin is a synthetic version of oxytocin, a natural hormone that causes uterine contractions. It is intended to increase the strength or number of contractions. We discussed that this medication is given intravenously, starting at a low-dose and increasing at a regular interval until contractions are every 2 to 3 minutes. We discussed that this medication is generally considered safe and is commonly used in labor and delivery, but does carry a risk of tachysystole (too frequent or prolonged contractions). In some cases, this may temporarily affect oxygen delivery to the fetus and cause changes to the heart rate pattern. We discussed the importance of continuously monitoring heart rate pattern and contraction activity when Pitocin to maintain safety. We reviewed that any periods of tachysystole or concerning heart rate patterns would lead the RN or provider to discontinue the Pitocin and begin measures to increase oxygen delivery to the fetus, including maternal position changes, administering oxygen via mask, or giving fluids through the IV. The patient understands the risks and benefits of this therapy and opts to proceed with the plan for Pitocin induction. Paulette plans to avoid epidural and is open to nitrous, IV meds, hydrotherapy Anticipate Foot pain, bilateral 08/25/2024 Assessment & Plan (08/25/2024 12:11 PM EDT): A: Nerve pain likely due to compression from uterus on nerve pain, resolved with knee chest position P: Placed patient in knee chest position which resolved the nerve pain Request for sterilization 02/28/2024 Overview (04/24/2024): Consent signed and scanned 04/24/24 Assessment & Plan (08/28/2024 6:14 PM EDT): Paulette thinks she would like to do an interval tubal rather than an immediate PP because she doesn't want to change having increased discomfort Thinking about Depo prior to discharge Assessment & Plan (04/24/2024 1:41 PM EDT): Discussed tubal ligation, including timing of procedure, efficacy rate, and irreversible nature of procedure. She is 100% sure she does not want any more children. Form signed today. Assessment & Plan (02/28/2024 1:25 PM EDT): She is sure she would like tubal following delivery. Discussed signing consents around 24-28 weeks. Asthma 01/28/2024 Overview (01/28/2024): Patient has an albuterol inhaler prn wheezing/SOB that she uses 1-2x/week. Patient has never been hospitalized/intubated due to asthma. Assessment & Plan (08/28/2024 6:15 PM EDT): Will order inhaler for bedside Anemia 01/28/2024 Overview (01/28/2024): Anemia defined as: Hgb < 11 1st & 3rd trimester Hgb < 10.5 2nd trimester consider checking serum ferritin to confirm iron deficiency: ferritin ordered with intake labs Other testing as indicated (hgb electrophoresis or iron studies) Iron deficiency anemia- begin Fe supplement: 60 mg elemental Fe daily (BID or TID if severe anemia), consider stool softener and vitamin C CBC, ferritin, in 2-6 wks consider IV iron infusion (FEREHEME 510mg on CBC or cancer center) if severe, not able to take oral iron, or not improving Heme consult if anemia severe (< 8) or etiology is unclear Assessment & Plan (07/27/2024 10:39 AM EDT): Taking iron, reviewed iron rich foods as well. Anxiety 01/28/2024 Overview (06/05/2024): Zoloft re-started at the end of April. Not helpful. Feels that symptoms have gotten worse. Switched to prozac 06/05/24 Assessment & Plan (08/28/2024 7:10 PM EDT): Was on Prozac but discontinued 3 days ago because it wasn't working. She has previously been on Zoloft. Planning to make an intake appt at [facility]. Plan for plan PP - consider Psych consult for other medication option or MCPAP for Moms consult Plan to make a plan before discharge and plan for early visit Assessment & Plan (08/14/2024 12:14 PM EDT): Feels a little more mellow with prozac. Does not have a therapist yet, but she is planning on doing a walk-in intake at the [facility] in [place]. EPDS 14, which is improved. She should have an early PPV. Assessment & Plan (07/27/2024 10:39 AM EDT): Repeated EPDS today, 18 (previously 22). Feels like Prozac isn't really doing anything. Advised higher dosage probably needed to see effect in and with dx of anxiety. Increased to 20 mg. Also recommended she try walking in to [facility] to request an intake for therapy - there is one near her home and she plans to do so. Assessment & Plan (06/05/2024 2:46 PM EDT): Paulette has been taking the zoloft for the past 2 weeks. Started at 25 mg and then increased to 50 mg. She feels that she has not had any effect. Things seem worse rather than better. She continues to have vague thoughts of hurting herself. No plan. Feels that she is safe at home and would not act on these thoughts. Has crisis information and will call if needed. Her partner was present for this conversation and agrees. Discussed continuing to take zoloft and increasing dose for improved effect vs trying different medication. She would like to try a different med. Rx for prozac sent to pharmacy. Will come back in 2 weeks for a mood check. She had a therapist in the past that she did not find helpful. Would be open to trying someone else. Referral to [facility] placed. Assessment & Plan (05/08/2024 3:30 PM EDT): Paulette has been struggling a lot with anxiety, reports she wasn't sure how to say something but can't take it much longer. States she feels easily overwhelmed by her kids and often wants to disengage or hide. Has been feeling stressed and anxious most of the day and having nightmares at night. Reports one day last week she felt acute anxiety and it felt like she couldn't breathe. Not sleeping well. She used Zoloft following her previous and found it helpful for anxiety symptoms, inquires about starting this again. Discussed risks/benefits of Zoloft use and I agree it would be a good thing to restart. EPDS 22 with sometimes on Q10. Safety planning completed, pt does not feel she needs crisis care at this time. Will f/u in 2 weeks. Migraine with aura 01/27/2022 Overview (02/28/2024): Has had migraines with aura for years. Sees a neurologist, Lou at [facility]. Has an appt at the end of the January. Excedrin migraine helps a lot but knows not to take it in . Assessment & Plan (06/05/2024 2:40 PM EDT): Paulette has had a migraine for the last few days. Has tried all of her medications and they are not helping. Taking fioricet, reglan, magnesium and benadryl at night time. The benadryl helps her to sleep for a bit but then she wakes up again with the headache. Reports pain at a 9/10 today. Suggested that she could go to the ED to have her medications adjusted. She does not want to do that. Has not seen neurology for a long time. Referral placed to her neurologist at [facility]. She has seen a chiropractor in the past which was helpful but not recently. She will reach out to get an appointment. Assessment & Plan (04/30/2024 10:10 AM EDT): 04/30/24: Pt calling w migraine x several days that has not been relieved with caffeine and tylenol. She has also been hydrating well and taking magnesium for prevention. Rx for fioricet to be used only when she has a migraine. Continue other supportive measures. Assessment & Plan (04/24/2024 1:43 PM EDT): Taking mag ox daily, very helpful. Refill sent to pharmacy. Assessment & Plan (02/28/2024 1:23 PM EDT): Has been having frequent migraines, particularly over the past two weeks. Has nausea, photophobia, severe throbbing pain with headaches. Has tried Tylenol and ibuprofen without much effect. Also struggling with nausea. Reviewed headache prevention measures, encouraged adequate hydration and small frequent meals. Advised to use Tylenol with caffeine for headaches, Rx sent to pharmacy. May also take Reglan at the same time for headache-associated nausea or for nausea in general. Also recommended she begin taking a nightly magnesium supplement for headache prevention. Advised to check in if these measures are not helpful, otherwise check in at n.v. Assessment & Plan (01/28/2024 11:04 AM EST): Stable. Uses OTC meds. Reviewed Tylenol for GIBSON in . Assessment & Plan (04/24/2022 9:41 AM EDT): No complaints Assessment & Plan (04/02/2022 1:57 PM EDT): -Pt states GIBSON have continued. -Has not received Rx for firiocet. States that the pharmacy has not filled RX. -New RX sent today Assessment & Plan (01/27/2022 12:13 PM EST): Migraines have been worsening, especially over the past two weeks. Has had so much nausea that she can't eat, can't get out of bed, it has been hard to go to work. Not taking any nausea medication. It isn't clear if the nausea is causing the migraine or the migraine is causing the migraine. Tyln Tylenol on it's own isn't helpful. Caffeine, hydration, and dark room also haven't helped. Discussed we can try treating the nausea to see if it helps reduce the migraine - she accepts, rx sent to pharmacy for zofran. Recommended taking it Q8 hours for 3-4 days or until symptoms improve, then as needed. Discussed trying fioricet now for migraine versus waiting to see what her neurologist says versus waiting to see if migraine improves when nausea decreases. Paulette feels like her neurologist won't give her anything else because that is what happened last . Rx sent to pharmacy for fioricet. Advised not to take any additional tylenol as one can OD on tylenol. Recommended taking 2 tablets every 6 hours as needed but not to exceed 8 tablets in 24 hours. Instructed to call if no improvement with fioricet or zofran. H/O pyelonephritis 12/18/2021 Overview (05/19/2022): Had to be hospitalized for a few days, states she felt like she was dying. She can't remember the date, not in the last two years. Urine culture Q trimester 1st - 01/27 2nd - 05/04 at [facility], < 10,000 colonies 3rd - Assessment & Plan (01/28/2024 11:05 AM EST): Urine culture ordered with intake labs. Assessment & Plan (06/12/2022 6:05 AM EDT): Should have urine culture at upcoming appt. Assessment & Plan (01/27/2022 12:13 PM EST): Urine culture sent today. Instructed to call with any signs of UTI and reviewed plan to check urine culture Q trimester. Resolved Problems Problem Noted Date Diagnosed Date Resolved Date Uterine contractions 08/25/2024 Assessment & Plan (08/25/2024 12:10 PM EDT): A: IUP at 38 6/7 weeks GA here with contractions Evaluate for labor GBS neg FHR reactive- cat 1 4 cm cervix on admission 1030 am P: Monitor and reassess cervix at 1230 Decreased movements in third trimester 08/30/2024 Assessment & Plan (08/25/2024 12:12 PM EDT): A: Reactive NST Now feeling normal FM P: Reassured contractions 08/09/2024 Assessment & Plan (08/09/2024 9:31 PM EDT): -IV Fluids -Nifedipine IR -UA sent -VE /-3. Pt talking through contractions Acute cystitis during pregna ncy in third trimester 08/09/2024 08/30/2024 Assessment & Plan (08/09/2024 9:33 PM EDT): +2 Leuks on UA Dose of azithromycin given Will monitor for 2 hrs and reassess VE if unchanged she will be discharged home w/ ABx History of delivery 02/28/2024 08/09/2024 Overview (02/28/2024): Delivered P2 at 35 weeks ?? Progesterone supplementation - Preferred formulation: 200 mg prometrium PV qHS from 16-37 weeks - Offer to any patient with a ayala and a history of spontaneous (20-36.6 weeks) - May reduce incidence of PTD by up to 20%, however uncertainty regarding risk reduction and its magnitude exist - OPPTIMUM trial of vaginal progesterone prophylaxis for , a large trial with the longest duration of follow-up (children at two years of age), found no increase in risk of any major complication in mothers or offspring up to two years of age. ?? Serial (Q 2 week) cervical length 16 - 24 wks. - Immediate referral to MFM if < or = 2.5 cm - If 2.6 - 2.9 cm, initiate weekly measurement ?? Betamethasone 24 - 36.6 wks if symptomatic Assessment & Plan (07/03/2024 11:50 AM EDT): Recently seen at [facility] with contractions. Resolved with hydration. Reports fibronectin was negative. Was told to ask about betamethasone at this appt. Advised she does not need this at this time as she is not symptomatic and reviewed negative ffn is reassuring. Assessment & Plan (05/08/2024 3:27 PM EDT): Cervical length > 3cm today, no further ultrasounds indicated. Assessment & Plan (04/24/2024 1:40 PM EDT): Cervical length > 4 cm today. Will schedule one more cervical length for 2 weeks from now. Assessment & Plan (04/10/2024 10:58 AM EDT): Cervical length 3.8 today, denies s/s of labor. Has repeat CL with anatomy scan in 2 weeks with visit to follow. Assessment & Plan (03/30/2024 10:38 AM EDT): Cervical length is 3.4 cm today. Has q 2 week U/S scheduled. Over the past week or so she reports having episodes of belly tightening vaginal pressure, electric shock-type pain radiating into back and buttocks. Episodes last a minute or two and can be around q 30 min. Not constipated. Denies dysuria but does feel a lot of bladder pressure. Will send urine culture today. Reviewed importance of staying hydrated. Suggested she practice regular kegel exercises and pelvic tilts to maintain pelvic floor strength. She may benefit from a belly band in the third trimester. Reviewed s/s of labor and contacting practice. Assessment & Plan (02/28/2024 1:24 PM EDT): Discussed history and recommendations for this . She is interested both checking cervical lengths and using vaginal progesterone. Orders entered. Will need Rx for vaginal progesterone at n.v. Supervision of normal 01/28/2024 08/30/2024 Overview (08/14/2024): CNM OB-CMI score: 1 [01/28/2024] Group PN care? * screening low risk cfDNA Baby ASA? no Rh pos GC/Chlam neg PAP NILM 03/2024 Flu 08/14/24 COVID-19 * Hgb 10.8 GTT 110 Repeat RPR neg Tdap 07/27/24 EPDS 22 - see problem list PPBC tubal - reconsidering as of 07/27/24, plan would be for Depo if she decides against GBS neg Infant Feeding Plan breast Baby Zelyana Assessment & Plan (08/28/2024 10:17 AM EDT): Paulette is here with her mom. She is ok but ready to have baby. Baby has been moving well. She has continued to have intermittent contractions. Would like to be induced. SVE today /-2. Scheduled for induction this evening at 5 pm Assessment & Plan (08/14/2024 12:14 PM EDT): Paulette is doing well. Has been santosh a lot but she states she ignores them unless they get really strong. Seen in the hospital recently for labor, resolved after nifedipine. Urinalysis was c/w UTI so she was treated for that. Paulette suspects she will be having the baby soon, but advises she might want elective IOL in the 39th week if not. Discussed handout, advised she can start hand expression now as desired. Discussed and administered flu shot today. Assessment & Plan (07/27/2024 10:38 AM EDT): Paulette has been feeling very tired and reports poor appetite. TWG for 7 lbs. Eats a sandwich for breakfast but typically no lunch or dinner. Snacks in the afternoon - cereal and granola bars, fruit, cereal bars. Staying well hydrated. Discussed that protein deficiency and low intake in general can be contributing factors to fatigue, low mood, mild anemia. Discussed strategies for increasing her nourishment and protein intake - consider smoothies, protein bars, nut butter or full fat dairy. She will discuss with WIC counselor as well. TDAP today. Discussed plan for tubal - she is reconsidering at this point. Would be interested in Depo if she changes her mind. Feels a lot of pelvic pressure but has not had any s/s of labor so far in this . Reviewed signs and contacting practice. Assessment & Plan (07/03/2024 11:52 AM EDT): Doing her GTT/CBC/RPR today, notes she has developed a headache since drinking glucola. Plans to go home and take some meds and lie down. Baby has been very active. Reviewed third trimester warning signs and reasons to call. Intended to assess prozac effect and repeat EPDS at today's visit but pt was due back at the lab - check in at n.v. Assessment & Plan (06/05/2024 2:49 PM EDT): Paulette is here with her partner. She is having a hard time. Baby is moving well. Feeling lots of movement. She know she needs to do 28 week labs. Did not feel up for it today. Will do them next week. Assessment & Plan (05/08/2024 3:31 PM EDT): Here with her partner. Feeling really uncomfortable since last night, feeling a lot of rectal pressure. Gets some relief propping her belly up with pillows and being in hands and knees position. She is not constipated, actually having some loose stool. Recommended maternity support belt and swimming, hands and knees position. Discussed and ordered GTT/CBC/RPR. Assessment & Plan (04/24/2024 1:42 PM EDT): Here with her mom. Feeling well today. Recently called in with a RLQ sharp pain that she gets from time to time - this resolved over time and with stretching. Reinforced counseling on s/s of labor and reviewed comfort measures. Feeling ample movement. Just had normal anatomy scan today, results reviewed. Assessment & Plan (04/10/2024 11:00 AM EDT): Paulette is here with her partner today. Has started to feel some regular movement. Continues to note relief from headaches most days and can tolerate infrequent headaches when they come. She notes she woke up with severe uterine cramping type pain, doubled over, at 11pm last night. Unsure what it was but it only lasted 30 seconds and did not recur. No vaginal bleeding, leaking of fluid. Reinforced teaching on s/s of labor and when to call, ensuring adequate hydration. Assessment & Plan (03/30/2024 10:40 AM EDT): Paulette feels generally well, reports migraines have improved a lot with magnesium supplement, has only had one severe episode since last visit. Asks about quickening - she has an anterior placenta, reviewed she will probably feel FM over the next few weeks. PE with Pap smear today, see OB physical tab. Unplanned 01/27/2024 02/28/20 Overview (01/27/2024): 8 weeks 2 days today based on bedside ultrasound at [facility] And backtracking, most of conceived a few days prior to getting Depo-Provera December 20 History of short cervix with a 35-week delivery Assessment & Plan (01/28/2024 11:08 AM EST): Patient received Depo-Provera in November. She had taken a break from Depo. UPT negative in the office when Depo was administered. Patient believed she conceived right before Depo injection in early November. Assessment & Plan (01/27/2024 12:41 PM EST): Recommend confirming gestational age and due date within ultrasound, also assess the cervical length given history.Paulette has decided to continue the , but was interested in getting a tubal ligation after delivery. Her partner is also considering vasectomy She has the intake appointment tomorrow, and I will defer any blood work for today. Suprapubic cramping 01/27/2024 08/30/20 Assessment & Plan (01/27/2024 12:41 PM EST): Abdominal exam is benign, she declined internal pelvic. Intrauterine based on ultrasound 6 days ago at [facility], will set up a formal ultrasound to reassess and check cervical length is noted. Recommend calling our practice if her pain increases or there is any additional symptoms such as bleeding Uterine contractions at grea ter than 20 weeks of gestation 07/24/2022 01/27/2024 Overview (07/24/2022): Client is currently in early labor, anticipate progress to active labor. Will admit. GBS negative. Rh positive. Early term. Normal intrauterine , antepartum 07/24/2022 01/27/2024 uterine contractions in third trimester, antepartum 07/16/2022 07/24/2022 Assessment & Plan (07/16/2022 2:53 PM EDT): Admit for observation COVID 19 screen Continuous monitoring Regular diet VS Q shift Recheck cervix in 3-4 hours or as needed COVID-19 affecting in third trimester 06/20/2022 01/27/2024 Overview (06/20/2022): Date of symptom onset or positive test: 06/15/22 at [facility] (asymptomatic) Gestational age at diagnosis: 32 weeks ? ? Virtual visits for non-urgent care until COVID-19 infection status is resolved as defined by current [facility] policy: [email or web address]/departments/emergency_preparedness/covi [email or web address]/c [email or web address]/infection_statuses_and_resolution_ ? ? Offer Monoclonal antibody therapy if appropriate: o [employer] - Gradient X ([facility]) Click Browse Manuals >> [facility] Departmental Documents & Policies >> OB-FOOD EDITOR Department Documents >> COVID-19 >> OB related guidance >> Outpatient >> Obstetrics Outpatient Therapy For Symptomatic COVID not requiring hospitalization Shared Decision Making Talking Points ? ? Routine anatomy survey at 18-20 weeks ? ? Offer growth US at 30-32 weeks (or 2-4 weeks after infection occurring after 32 weeks) Assessment & Plan (07/24/2022 7:42 PM EDT): No covid screening on admission needed. uterine contractions 06/15/2022 01/27/2024 Overview (07/14/2022): Onset on 06/15/22 at [id number] Evaluated x 1 for this previously in outpatient setting, Ffn pos on 05/19 06/15 contractions with cervical dilation. Transferred to [facility]. Discharged after 3 days with stable cervix at 4-5 cm 06/22/22 seen at [facility] for PTL, cervix remained 4-5 cm and she was discharged. 07/06/22 inpatient PTL, 5 cm without cervical change, no tx 07/09 inpatient PTL eval, 5 cm dilated without cervical change, no tx Assessment & Plan (07/14/2022 11:22 AM EDT): Reviewed history of multiple PTL evaluations and recurrent contractions without labor onset. We discussed option for IOL at 39 weeks given advanced cervical dilation and discomfort of frequent contractions. Pt would like a membrane sweep at 39 weeks (this was effective to start labor with previous ) and would be interested in IOL at term. Assessment & Plan (07/03/2022 1:12 PM EDT): [facility] Hospital the first week of June with contractions. Cervix remained 4-5 cm and she was discharged. Has not had contractions since then. Assessment & Plan (06/19/2022 4:27 PM EDT): She was hospitalized at [facility] for 3 days and was discharged 2 days ago after her cervical exam stabilized at 4-5 cm. She had BMTZ x 2. She is more comfortable today. Assessment & Plan (06/15/2022 2:32 PM EDT): A: 21 y.o. at 32w0d with contractions and cervical change since last exam Cat 1 FHR Intact membranes Covid pos P: - Recommended transfer of care to [facility] given cervical change since last exam and clear change in clinical presentation. Discussed with Dr. Kirkpatrick at [facility] and transfer accepted. - Administer betamethasone for lung maturation - Begin vancomycin 2g for GBS unknown with PCN allergy - Continue with continuous monitoring - Consult with Dr. Dale who agrees with plan of care and decision to transfer Abdominal trauma 05/27/2022 01/28/2024 Assessment & Plan (05/27/2022 1:19 PM EDT): FHR cat 1, no ctx on toco, comfort measures and danger s/s reviewed. Given note for work stating she should avoid the potential for abdominal trauma Positive fibronectin a t 22 weeks to 34 weeks gestation 05/20/2022 01/27/2024 Overview (05/20/2022): No overt s/s PTL, cx long and closed. D/w Dr. Silva, will re-evaluate in 2 days. Assessment & Plan (06/15/2022 11:55 AM EDT): Paulette started having pain and tightening in her belly yesterday. It feels more frequent and strong today. Denies vaginal bleeding and leaking fluid. Baby has been moving well. SVE 250/-3 which is a change since her last exam at the end of April. Will go to [facility] for evaluation. Assessment & Plan (05/27/2022 1:08 PM EDT): Pt has received steroid course, cx unchanged since last exam on 05/21/2022 Assessment & Plan (05/21/2022 3:03 PM EDT): Pt reports ongoing cramping which has not increased in intensity and frequency. Denies vb--except 1 incident of post void pink on TP when wiping just minutes ago. Pt denies lof, dfm. We discussed +FFN results are not necessarily dx of PTL, but will require ongoing closer surveillance. cx today unchanged: 1//-4 soft. SSE done: no bleeding, mild white discharge. Wetmount neg. We reviewed importance of pt calling with any increase in sx, increase fluids, rest. Abdominal cramping affecting 05/19/2022 01/27/2024 Overview (05/27/2022): FFN positive 05/19, results reviewed by RODO Vaginal culture neg Assessment & Plan (05/19/2022 5:56 PM EDT): Paulette is a 21yo at 28w1d, here for problem visit. Has been having lower abd cramping that started today, states it was bad, was at [employer] and felt like she had to pee. When she sent to the bathroom, saw a glob of clear mucous in her underwear. Continued to have cramping. Didn't last long but was intermittent. It was minor this morning but has been intense for the past two hours. Did not have any other LOF. Denies VB. Active baby. - denies dysuria or hematuria Vaginal discharge - no changes, no odor GI - denies constipation or diarrhea Has not had intercourse in the past few days PE: Vagina: no pooling of fluid, copius thick white discharge present, no odor PH 4.5 SVE long/closed Plan: FFN, vaginal culture sent Counseled on iker garcia, hydration CARTER as scheduled in 1 week contractions 05/04/2022 022 Assessment & Plan (05/29/2022 11:47 AM EDT): No contractions today! Assessment & Plan (05/21/2022 2:56 PM EDT): Pt denies contractions, but reports ongoing cramping which is improved with rest/sitting. Is aggravated by movement. Pt denies lof, had post void pink on TP here in the office 5 minutes ago. Denies vaginal itching, pain. Here with partner and he attests that he took all treatment for +chlamydia. Pt states the cramping is not worse than when it started. Assessment & Plan (05/04/2022 7:25 PM EDT): A: IUP at 26 weeks with contractions and cervix found to be 1 cm + CT, not yet treated R/O labor status reassuring P: Admit to observation Continuous EFM Send UA, U culture, Utox, GBS, FFN Treat + CT with Azithromycin 1000 mg po now Betamethasone for lung maturity Await FFN and watch for further contractions - report given to oncoming team who will evaluate if patient needs treatment for labor Chlamydia infection affectin g in second trimester 05/04/2022 01/27/2024 Overview (05/05/2022): Test of cure around 06/04/22, consider trichomonas testing at that time. repeat gc/ct 3 months after test of cure or on admission. Recommend third trimester HIV/Syphilis testing and consider on admission. Assessment & Plan (06/12/2022 6:02 AM EDT): GC/CT repeated today along with wet prep, which was wnl Assessment & Plan (05/04/2022 7:25 PM EDT): Treat now with Azithromycin Pt has been counseled on partner treatment uterine contractions 05/04/2022 05/19/2022 Rash of body 02/12/2022 01/28/2024 Assessment & Plan (04/02/2022 1:56 PM EDT): Discussed trying to use Fluff cream. Compound of hydrocortisone cream w/ cerve moisturizing cream. -actigall ordered as well for symptomatic relieve -Pt also encouraged to reach out to PCP Assessment & Plan (02/25/2022 4:01 PM EDT): Pt saw pcp who thought it was related and did not want to treat. Assessment & Plan (02/12/2022 5:19 PM EDT): I have an itchy rash that started a week ago on my chest and is spreading S: Rash started about 5 days ago at sternum and across breasts, tried PO benadryl with little relief. Rash has been spreading across trunk. Trying not to scratch, has been tapping skin to avoid scratching, is disrupting sleep. C/o feeling sweaty/feverish w/o elevated temp. C/o diarrhea since 5 days ago, several times daily, difficult to deal with at work. States family is well, no others in household with rash or illness. States no new products, foods, meds. O: Areas of erythema with scattered papules over trunk, lateral hips and inguinal folds. A: Rash of unknown origin, does not appear to be PUPPS rash or other -related condition. ?generalized allergic reaction, ?viral rash w/GI symptoms P: Rx topical steriod cream. Suggested oatmeal bath for comfort, hydration with electrolyte drinks to replenish fluids. Referred to PCP, reassured this is appropriate for PCP care, referral to derm available if PCP again declines to treat. Will call if symptoms become worse, if PCP declines to treat. RTO for next PN visit. Margoth Rosales SNM Vaginal elizabeth 01/12/2022 01/27/2022 Assessment & Plan (01/12/2022 4:06 PM EST): -Discussed that during the vaginal pH changes putting her at a greater risk for yeast. This is very common. -Pt advised to avoid douching, wear cotton underwear, decrease tub baths, and wear loose fitting pants. Change soaps and laundry detergents to odorless/colorless/sensitive skin formulations. -Rx sent to pharmacy Encounter for supervision of normal in third trimester 01/01/2022 01/27/2024 Overview (07/14/2022): CNM OB-CMI score: 0 [01/01/2022] Rh B+ GC/Chlam sent 02/25 PAP - thinks she had at [facility], record request sent 01/27--no records received. Per pt--normal. Tdap 06/09/22 Flu - doesn't recall if she has had it COVID-19 - declines Hgb 11.1 GTT 103 28 wk Repeat RPR NR GBS Negative 05/04/22 PPBC Depo screening NT NEG Assessment & Plan (07/22/2022 1:40 PM EDT): Paulette is a 21 y.o. at 37w2d here with her partner Honorio, doing well but hoping baby will come soon. Denies VB/LOF. + FM. Irregular mild cxns, cramping, sometimes loose stool, no other s/sx GI upset. Walking, using yoga ball for exercise. Painful leg cramps, discussed magnesium for comfort. Was seen at [facility] on 07/17 and at [facility] on 07/19 for labor checks d/t uncomfortable cxns, no cervical change either episode. SVE today 4-5cm, effacement more balanced, head feels well-applied to cervix. Reviewed comfort measures for non-labor cxns, when to call for s/sx labor. Aware she can discuss IOL at 39w if no labor before then. Recalls her son was born at 37w. Will call promptly with labor cxns, ROM, bloody show. RTO 1 week. Assessment & Plan (07/14/2022 11:23 AM EDT): Feeling very uncomfortable, exhausted, frustrated, continues to have regular cramping that makes it hard to sleep and get comfortable. Denies vaginal bleeding, leaking of fluid. Very active baby. Discussed plan of care for the end of third trimester, see prob list. PP BCM discussed, would like to restart Depo . Assessment & Plan (07/03/2022 1:15 PM EDT): Paulette is here with her partner. She is a little uncomfortable but otherwise well. Her baby is very active. She does not have any questions or concerns today. Will need repeat GBS at next visit. Was negative in April Assessment & Plan (06/19/2022 4:41 PM EDT): She notes good movement. She denies any vaginal, LOF or regular contractions but has had some lower back, pain. She is Covid positive but remains asymptomatic. Assessment & Plan (06/12/2022 6:05 AM EDT): Here with Honorio. Continues to feel very uncomfortable, different from her previous . Has been having more pelvic pressure than usual lately. Sometimes also has some irregular contractions at the same time. These are not distinct enough that she could time them and do not progress. No vaginal bleeding. Feels comfortable with PTL warnings and when to call. Also c/o increase in vaginal discharge with odor associated. Feels wetter than usual over the past week, on exam, neg pooling, neg ferning. Cervix visibly closed. Wet prep wnl. Gave reassurance and reiterated PTL symptoms and contacting practice. TDAP today. EPDS 3, reviewed expectations and resources. Assessment & Plan (05/29/2022 11:50 AM EDT): Paulette is a 21 yo @ 29+4wks. Baby active. Denies vb, lof and contractions. 28 wk labs in process. We discussed schedule of visits going forward. Encouraged healthy lifestyle: nutrition, exercise, good rest, hydration. Pt happy to be feeling no contractions! No complaints. CARTER 2 weeks. Assessment & Plan (05/21/2022 2:58 PM EDT): Baby active. Due for 28 week labs--have been ordered. Reminded pt of necessary blood work. Assessment & Plan (04/24/2022 9:42 AM EDT): Paulette is a 21yo @ 24+4 weeks. Telemed visit today. Reports baby is active, having occ bh ctxs, denies vb, lof. Pt reports feeling more achy in her body, some numbness in her arms and legs. We discussed benefits of stretching, epsom salt baths, and a balance of movement and rest. We also discussed upcoming 28 week labs--pt was also told by [facility] that it would be good to have a CBC at this point in her . Labs ordered. CARTER 4 weeks. Assessment & Plan (04/02/2022 1:52 PM EDT): Viola is a 21 y.o. at 20w3d states she feels well today. Denies any concerns at this time. Denies any LOF/Vaginal bleeding/Ucs. Reports +FM -Discussed FM at this GA and when to expect to feel more movement -Review signs and symptoms of Pre-term Labor and when/how to contact midwives -Reviewed Anatomy scan prelim results. Advised that our OBs review all US and might make further recommendations -2nd trimester labs discussed for 28 wks. -Advised on Tdap administration in and implications. Administered between 28-36wk. -NV in 4 weeks Assessment & Plan (02/25/2022 4:07 PM EDT): Paulette is here for CARTER. Was seen in the ER recently for fainting and spotting---Cleared and discharged. Sx have not returned. We discussed that cx length is 3.3cm --pt has a follow up scan. If normal, no further scan needed. Rash is continuing to bother her. Tried steroid cream without relief. Derm referral placed. We discussed upcoming anatomy scan. CARTER 4 weeks. Assessment & Plan (01/27/2022 12:17 PM EST): Viola is a 21 y.o. at 12w1d. Here for First OB visit. Recently treated for vaginal candidiasis, symptoms have resolved. PE not done today. Has appt for physical in February with her PCP and not sufficient time for exam today. Offered exam at 16 week visit, she accepts. Pap smear - thinks she had it at [facility]. It isn't in the records, new record request sent today. US for NT today, cardiac activity seen. First trimester lab results reviewed. Urine culture sent CARTER in four weeks. Assessment & Plan (01/12/2022 4:05 PM EST): Viola is a 21 y.o. at 10w0d states she feels well today. States she is feeling nervous and anxious due to the spotting. Denies any LOF/ heavy Vaginal bleeding. Does report occasional cramping -+FHT today -Advised on quickening and what to expect in the upcoming weeks -Review warning signs and when/how to contact midwives -Discussed US results -Reviewed lab results. -Advised on care structure Assessment & Plan (01/01/2022 10:49 AM EST): Viola is a 21 y.o. at 8w3d states she feels well today. Denies any concerns at this time. Denies any LOF/Vaginal bleeding/Ucs. Reports a lot of cramping -Will like to see the midwives for this -Advised on quickening and what to expect in the upcoming weeks -Review warning signs and when/how to contact midwives -Advised that our OBs review all of our US and may make further recommendations. -Reviewed lab results. -Advised on care structure -Will like NT of genetic screening. Ordered place advised US for 11-13 wks Short cervix 12/25/2021 02/28/2024 Overview (04/29/2022): Cervix 3.6cm on last u/s with MFM- NO INTERVENTION/Follow up needed Had full term delivery in past 12/18/21: US cervix length 2.3- 2.6 cm at 7 weeks- plan repeat imagine 01/02/22 - repeat is 2.7 cm. Will recheck at the 12 weeks NT ultrasound, refer to MFM if <2.5. 01/27/22: CL 2.78cm on NT US today. Recheck with anatomy scan. 02/14/2022: Patient seen on CBC for discharge and cramping and had a syncopal. Evaluated in ED. No cause. VE by TK with cervix feeling short in ED. MFM cervical length on 02/16/2022 was 3.3 cm. Cervical length on anatomy scan 04/07 3.48. No intervention recommended MFM 03/16: CL 3.6 Assessment & Plan (01/28/2024 11:05 AM EST): CL with US on 02/03/24 Assessment & Plan (05/21/2022 2:52 PM EDT): VE cx long, soft, 1cm. Unchanged. Assessment & Plan (01/27/2022 11:48 AM EST): Cervical length 2.78gm today on US. Will plan to recheck with anatomy scan. Patient aware to call with any concerns. Assessment & Plan (01/01/2022 10:48 AM EST): -Will have FD call to schedule repeat US ? [place] Denies any bleeding. Reports cramping History of chlamydia 12/18/2021 024 Overview (01/27/2022): In 2019 Assessment & Plan (07/24/2022 7:37 PM EDT): Most recent testing 07/06/22 negative, test of cure negative. Assessment & Plan (01/27/2022 12:14 PM EST): Will need GT/CT at 16 week visit. Threatened miscarriage 12/10/202101/27 Overview (12/18/2021): LMP 11/03/2021 US 12/18/2021: 6w6d with pos FHR 125, 3 days larger than LMP dates. Use LMP dates for ZOILA Assessment & Plan (12/10/2021 12:41 PM EST): Need blood type; recommend calling us for any bleeding, recommend u/s in 10 days based on her recall, need the records to be sure Initial labs ordered today Keep the intake appt Encounters Date Type Department Care Team Description 03/20/2025 Telephone [facility] [address] [place] [address] Margoth Botello CNM Appointment from Last 3 Months Immunizations Name Administration Dates Next Due Influenza Trivalent Preservative Free IM 024 Influenza Trivalent w/ Preservative IM 8 Td, unspecified formulation 03/07/2019 Tdap 07/27/2024,06/09/2022 Family History Medical History Relation Comments Heart attack Brother had complication s and was in ICU, limited mobility 2021 No Known Problems Daughter Hypertension Father Cancer Maternal Cousin cancer type unkn own Arthritis Maternal Grandmother Asthma Maternal Grandmother High cholesterol Maternal Grandmother Hypertension Maternal Grandmother No Known Problems Mother No Known Problems Son Relation Status Comments Brother Alive Daughter Alive Father Alive Half-Brother 1 Alive Half-Brother 2 Alive Half-Sister Alive Maternal Cousin Maternal Grandfather Alive Maternal Grandmother Alive Mother Alive Paternal Grandfather Alive Paternal Grandmother Alive Son Alive Social History Tobacco Use Types Packs/Day Years Used Date Smoking Tobacco: Never Smokeless Tobacco: Never Tobacco Cessation:Counseling Given: Not Answered Alcohol Use Standard Drinks/Week Comments Not Currently [...] with a working camera? Not on file Intimate Partner Violence Answer Date R ecorded Are you denied basic needs s uch as food, clothing, or medical care? No 08/28/2024 In the past 12 months have y ou been in a relationship with a person who hurts, threatens, or tries to control you? No 08/28/2024 Are you denied basic needs s uch as food, clothing, or medical care? No 08/28/2024 In the past 12 months have y ou been in a relationship with a person who hurts, threatens, or tries to control you? No 08/28/2024 Sex and Gender Information Value Date Recorded Sex Assigned at Female 05/05/2022 7:35 PM EDT Gender Identity Female 05/05/2022 7:35 PM EDT Sexual Orientation Straight 05/05/2022 7: 35 PM EDT Last Filed Vital Signs Vital Sign Reading Time Taken Comments Blood Pressure 112/75 08/30/2024 11:00 AM EDT Pulse 86 08/30/2024 11:00 AM EDT Temperature 36.6 ??C (97.9 ??F) 08/30/2024 11:00 AM E DT Respiratory Rate 16 08/30/2024 11:00 AM EDT Oxygen Saturation 97% 08/30/2024 11:00 AM EDT Inhaled Oxygen Concentration - - Weight 86.2 kg (190 lb) 08/28/2024 6:00 PM EDT Height 157.5 cm (5' 2 ) 08/28/2024 6:00 PM EDT Body Mass Index 34.75 08/28/2024 6:00 PM EDT Plan of Treatment Upcoming Encounters Date Type Department Care Team (Late st Contact Info) Description 03/29/2025 9:20 AM EDT Office Visit [facility] [address] [place] [address] Noemi Lee MD [address] [facility], [address] [place] [address] [email or web address] Health Maintenance Due Date Last Done Comments DEPRESSION SCREENING 2010 HPV VACCINES (1 - 3-dose series) 2013 PNEUMOCOCCAL VACCINES (0-49 years) (1 of 2 - PCV) 2017 COVID-19 VACCINE ( - 2023-2 5 season) 2024 PAP SMEAR 03/30/2027 03/30/2024 Adult Td,Tdap Booster 07/27/2034 07/27/2024 , 06/09/2022, 03/07/2019 HEPATITIS C SCREENING Completed 02/28/2024 , 12/10/2021 HIV ONE-TIME SCREENING (18-6 5 YEARS) Completed 02/28/2024 SMOKING STATUS SCREENING (On ce After 26 Yrs) Completed 08/14/2024 HEPATITIS A VACCINES Aged Out No long er eligible based on patient's age to complete this topic HIB VACCINES Aged Out No longer eligi ble based on patient's age to complete this topic MENINGOCOCCAL VACCINES (ACWY) Aged Out No longer eligible based on patient's age to complete this topic Medical Devices Not on file Procedures Procedure Name Priority Date/Time Associated Diagnosis Comments PAP TEST Routine 03/30/2024 12:00 AM EDT HEPATITIS C ANTIBODY, QUALITATIVE Routine 02/28/2024 12:51 PM EDT Supervision of normal from Last 3 Months or Most Recently Relevant to Health Maintenance Results * Pap Test (03/30/2024 12:00 AM EDT) 03/30/2024 03/31/2024 10: 45 AM EDT Narrative SEE NARRATIVE - 04/05/2024 3:25 [place] [address] Order Packer: Moon Tapia MD ?? FOOD EDITOR Cytology Report FINAL DIAGNOSIS A. ??PAP SMEAR (THIN PREP) CE: SPECIMEN ADEQUACY: Satisfactory for evaluation; transformation zone present. INTERPRETATION: NEGATIVE FOR INTRAEPITHELIAL LESION OR MALIGNANCY. This specimen was analyzed by the automated ThinPrep Imaging System ([employer].) and the selected pruett were reviewed by a warehouse assembly worker. Electronically Signed Out By: ??SUZI Rojas(ASCP) The Pap test is a screening test primarily for squamous cancers and precursors and has associated false-negative and false-positive results. ??New technologies such as liquid-based preparations may decrease but will not eliminate all false-negative results. ??Regular sampling and follow-up of unexplained clinical signs and symptoms are recommended to minimize false negative results. CLINICAL HISTORY Date of Last Menstrual Period: ??Not Provided Menstrual History: ?? Other Clinical Conditions: ??Screening Pap SPECIMEN SOURCE A: PAP SMEAR (THIN PREP) CE Patient Name: ??VIOLA DUDLEY : ??2000 (Age: 23) Sex: ??F Institution: ??[facility] Location: ??[facility] Date of Collection: ??03/30/2024 Date of Reported: ??04/05/2024 15:25 Results to: America Wilkinson MSN America Wilkinson [facility] CYTOLOGY ORDERABLES Performing Organization Address [facility] de Phone Number SEE NARRATIVE * Hepatitis C antibody, qualitative (02/28/2024 12:51 PM EDT) HCV NON-REACTIV E NON-REACTI VE [facility] Blood 02/28/2024 12:5 1 PM EDT 02/28/2024 1:01 PM EDT Suzy Blue [facility] LAB BLOOD ORDERABLES Performing Organization Address [facility]/State/ZIP Co de Phone Number [facility] [address] [place] [address] from Last 3 Months or Most Recently Relevant to Health Maintenance Advance Directives For more information, please contact: [phone] (9AM - 5PM [place], Wednesday-Wednesday) * Full Code (Latest Code Status on File) Date Activated Date Inactivated Comments 08/28/2024 6:06 PM Question Answer Comments Code Status Confirmed With: Patient * Full Code Date Activated Date Inactivated Comments 08/25/2024 12:05 PM 08/28/2024 6:06 PM Question Answer Comments Code Status Confirmed With: Patient * Full Code Date Activated Date Inactivated Comments 07/24/2022 9:39 PM 08/25/2024 12:05 PM Question Answer Comments Code Status Confirmed With: Patient * Full Code Date Activated Date Inactivated Comments 07/24/2022 7:44 PM 07/24/2022 9:39 PM Question Answer Comments Code Status Confirmed With: Patient * Full Code Date Activated Date Inactivated Comments 07/16/2022 2:47 PM 07/24/2022 7:44 PM Question Answer Comments Code Status Confirmed With: Patient Care Teams Heat Plant Specialist Relationship Specialty Start Date End Date Mark Garay MD [address] [place] [address] [place] [address] PCP - General Internal Medicine 11/25/21 Additional Source Comments The information contained in this document represents components of the legal health record. It is not the complete legal health record.[facility]
--- OUTSIDE RECORDS SUMMARY | 2025-03-27 13:33 | XMS_ITS | Clinical Summary ---
Author Organization [facility] Address [address] [place] [address] Care Team Providers Care Nuclear Cardiology Technologist Name Role Phone Unknown Primary Care Provider [phone] Allergies Active Allergy Reactions Criticality Noted Date Comments Ceftriaxone Anaphylaxis,Hives High 06/15/2022 Penicillins Anaphylaxis High 06/15/2022 Medications vitamin with iron and folic acid ( PLUS) 27-1 MG Tab Take 1 tablet by mouth daily. Active Active Problems Problem Noted Date Diagnosed Date 32 weeks gestation of 06/15/2022 Social History Tobacco Use Types Packs/Day Years [...] on file Sexual Orientation Not on file Last Filed Vital Signs Vital Sign Reading Time Taken Comments Blood Pressure 105/66 06/17/2022 8:45 AM EDT Pulse 87 06/17/2022 8:45 AM EDT Temperature 35.8 ??C (96.5 ??F) 06/17/2022 8:45 AM ED T Respiratory Rate 17 06/17/2022 8:45 AM EDT Oxygen Saturation 99% 06/17/2022 8:45 AM EDT Inhaled Oxygen Concentration - - Weight 77.1 kg (170 lb) 06/15/2022 6:24 PM EDT Height 157.5 cm (5' 2 ) 06/15/2022 6:24 PM EDT Body Mass Index 31.09 06/15/2022 6:24 PM EDT Plan of Treatment Health Maintenance Due Date Last Done Comments Hepatitis C Virus Screening 1998 HIV Screening 2011 HPV Vaccines (1 - 3-dose series) 2013 DTaP/Tdap/Td Vaccines (1 - Tdap) 2017 Hepatitis B Vaccines (1 of 3 - 19+ 3-dose series) 2017 Pap Smear (Ages 21-65) 2019 Influenza Vaccine 06/22/2024 COVID-19 Vaccine (1 - 2023-2 5 season) 2024 Pneumococcal Vaccine: Pediat soo (0-5 Years) and At-Risk Patients (6 to 49 Years) Aged Out No longer eligible b ased on patient's age to complete this topic Insurance MEDICAID OUT OF STATE [facility] Advance Directives * Full Code (Latest Code Status on File) Date Activated Date Inactivated Comments 06/15/2022 8:26 PM Care Teams Nuclear Cardiology Technologist Relationship Specialty Start Date End Date Unknown Unknow Provider Address PCP - General 06/15/22
== END 2025-03-27 14:49 | disposition home or self-care (01) ==
PROVIDERS: PCP Internal Medicine; Visit Provider Physician Assistant
DX: J02.9 Acute pharyngitis, unspecified (principal); J45.901 Unspecified asthma with (acute) exacerbation; Z13.9 Encounter for screening, unspecified

== ENCOUNTER → 2025-03-27 12:02 | Outpatient (BNVA) | payer OTHER, SELFPAY | PROVIDERS: PCP Internal Medicine; Visit Provider Physician Assistant | DX: J02.9 Acute pharyngitis, unspecified (principal); J45.901 Unspecified asthma with (acute) exacerbation | CPT/HCPCS: 87880; 99212 ==

== ENCOUNTER 2025-04-09 11:25 | Outpatient (AMB) | payer OTHER, SELFPAY ==
--- NOTE | 2025-04-09 11:33 | A.OFFPC_ITS ---
Vital Signs 04/09/25 11:34 Height 5 ft 2 in Weight 177 lb 8 oz BMI 32.5 BP 130/62 Blood Pressure Location Rt brachial Position Sitting Pulse 99 Pulse Source Pulse Oximeter Temp 97.3 F Temp Source Temporal Artery Scan Pulse Oximetry (%) 96 Oxygen Delivery Method Room Air Intake Visit Reasons: MEENU DR Garay Intake Note: Patient is here today for MEENU from Dr Garay [employer] Child Care Attendant Required: No Data Assistant: Not Required per policy Accompanied by: Self / Same As Patient Allergies Penicillins [PENICILLINS] Allergy (Intermediate, Verified 04/09/25 11:33) HIVES ceftriaxone [CEFTRIAXONE] Allergy (Unknown, Verified 04/09/25 11:33) HIVES SOB, anaphylaxis cinnamon [CINNAMON] Allergy (Unknown, Verified 04/09/25 11:33) HIVES penicillin G Allergy (Unknown, Verified 04/09/25 11:33) anaphylaxis Medication List - Last Reconciled 04/09/25 by Yazmin Masters PA-C albuterol sulfate 90 mcg/actuation 1 inh inhalation QID prednisone 40 mg (2 x 20 mg) PO DAILY Tobacco use date assessed: 04/09/25 Dental Screening Dental Screen Date: 11/24/[address] Garay HPI Details 24-year-old female with past medical his tory of asthma last seen 11/2024 coming in for transfer of care. Presenting with asthma exacerbation and depression and anxiety symptoms. Asthma exacerbation noted over the past week characterized by shortness of breath and increased frequency of albuterol inhaler use to every four hours. She was seen by walk-in clinic and given prednisone. History of anxiety and depression with treatment discontinued approximately three to four months ago due to lack of efficacy. She was previously treated with Zoloft, Prozac, Celexa and Lexapro and did not find this beneficial She follows with [facility] has had 3 pregnancies in the past and is currently on Depo-Provera injection. [facility] Medical History Anemia Surgical History History of wisdom tooth extraction Family History Father No problems noted. Mother No problems noted. Social History Housing: Apartment Alcohol intake: never Patient Tobacco Use Status: Never used Tobacco e-Cigarette/Vaping Use: Never Used Second Hand Smoke Exposure: No service: No Current occupational status: employed Current occupational exposures/hazards: No Cognitive needs: No Hearing needs: No Vision needs: Yes Female Reproductive History Menstrual control method: progesterone injection Total pregnancies: 3 Full term: 3 Questionnaire Thrive Questionnaire Date Thrive assessed: 11/24/24 I am a: Patient What is your living situation today?: I have a steady place to live Within the past 12 months, did the food you bought not last and you didn't have the money to get more?: Sometimes True Within the past 12 months, did you worry whether your food would run out before you got money to buy more?: Sometimes True Do you have trouble paying for medicines?: No Do you have trouble getting transportation to medical appointments?: No Do you have trouble paying your heating and electricity bill?: No Do you have trouble taking care of your child, family member or friend?: No Do you have trouble with day-to-day activities such as bathing, preparing meals, shopping, managing finances, etc.?: No Are you currently unemployed and looking for a job?: No Are you interested in more education?: Yes Currently or been in a relationship where the following occur: No concerns reported THRIVE Score: 2 ANTOINETTE-7 AMB Questionnaire ANTOINETTE-7 Date ANTOINETTE - 7 assessed: 11/24/24 Source: Developed by Drs. Lennox Prasad, Anabella Diaz, Maurice Davis and colleagues, with an educational medina from [employer]. Review of Systems Const Denies body aches, Denies chills, Denies fever(s), Denies headache(s) and Denies poor appetite Eyes Reports no additional complaints ENT Denies dizziness and Denies headache(s) Card Denies chest pain and Denies dyspnea Resp Denies dyspnea GI Denies nausea and Denies vomiting Reports no additional complaints Musc Reports no additional complaints and Denies abnormal gait Skin/Breast Reports system reviewed and no additional complaints, except as documented Neuro Denies abnormal gait, Denies dizziness and Denies headache(s) Psych Reports no additional complaints Physical exam (Primary Care) Vital Signs: Last Vital Signs Temp 97.3 F 04/09/25 11:34 Pulse 99 04/09/25 11:34 BP 130/62 04/09/25 11:34 Pulse Ox 96 04/09/25 11:34 Oxygen Delivery Method Room Air 04/09/25 11:34 BMI result Body Mass Index 32.5 Tobacco/Smoking Status: Tobacco use Status Tobacco use date assessed 04/09/25 04/09/25 11:38 Patient Tobacco Use Status Never used Tobacco 04/09/25 11:38 e-Cigarette/Vaping Use Never Used 04/09/25 11:38 Thrive Assessment: Date of Thrive Assessment Date Thrive assessed 11/24/24 04/09/25 11:38 Currently or been in a relationship where the following occur: No concerns reported Const General: cooperative, healthy appearing, comfortable and no acute distress Orientation/consciousness: patient oriented x3 HENMT Head: Yes normocephalic Ears: hearing grossly normal bilaterally General nose exam: Normal external nose present Eyes General: appearance normal, both eyes and all related structures Conjunctivae: conjunctivae normal Neck Neck: Yes full ROM and Yes no lymphadenopathy Resp Effort & Inspection: normal respiratory effort Auscultation: clear to auscultation bilaterally, no crackles, no rales, no rhonchi and no wheezes Cardio Rate: regular rate Rhythm: regular rhythm Skin General skin exam: no rashes or lesions noted Neuro General: patient oriented x3 Gait exam (Neuro): Normal gait present Extrem General: Yes normal to inspection, Yes full ROM and No edema Psych Affect: normal affect Attitude: cooperative Insight: Good insight present (Psych) Judgement: Good judgement present (Psych) Coding Level of Care Code Est Pt Level 3 (03101) Diagnoses Asthma J45.909 Anxiety F41.9 Depression F32.A Shortness of breath R06.02 Assessment & Plan Assessment & Plan (1) Asthma: Code(s): J45.909 - Unspecified asthma, uncomplicated Category: Medical Plan: Asthma currently controlled on present medications. Continue on albuterol as needed. Avoid triggers such as allergies. (2) Anxiety: Code(s): F41.9 - Anxiety disorder, unspecified Category: Medical Plan: Patient having worsening anxiety and depression over the last several months. Plan to start on Wellbutrin twice daily for depression management and referral was placed to counseling as well. Discussed side effects of this medication and when to present for re-evaluation (3) Depression: Code(s): F32.A - Depression, unspecified Category: Medical Plan: See above (4) Shortness of breath: Code(s): R06.02 - Shortness of breath Category: Medical Plan: Patient continuing to have shortness of breath related to her asthma. She has 2 days left of the prednisone advised patient to continue this course. Plan to obtain chest x-ray for further evaluation as well. Reviewed with patient red flag symptoms and when to present for re-evaluation Plan This note was constructed using voice recognition software. While every effort has been made to ensure accuracy and distribution operation supervisor, still areas may have been included sometimes these areas may affect the content or meeting of the given symptoms. Total time spent caring for the patient today was 30 minutes. This includes time spent before the visit reviewing the chart, time spent during the visit, and time spent after the visit and documentation. Patient was informed and verbally consented to the use of an ambient scribe for clinic note documentation during this visit. Orders: Orders XR chest 2V Today J45.909 - Unspecified asthma, uncomplicated, R06.02 - Shortness of breath Complete Blood Count Auto Diff Today Z13.0 - Encounter for screening for diseases of the blood and blood-forming organs and certain disorders involving the immune mechanism Comprehensive Rayle. Panel Fast Today Z13.9 - Encounter for screening, unspecified Vitamin B12 and Folate Today J45.909 - Unspecified asthma, uncomplicated, Z00.00 - Encounter for general adult medical examination without abnormal findings Lipid Panel Today Z13.220 - Encounter for screening for lipoid disorders Thyroid Stimulating Hormone Today Z13.29 - Encounter for screening for other suspected endocrine disorder Free T4 (Free Thyroxine) Today F41.9 - Anxiety disorder, unspecified, Z00.00 - Encounter for general adult medical examination without abnormal findings Vitamin D 25-OH Total Today J45.909 - Unspecified asthma, uncomplicated, Z00.00 - Encounter for general adult medical examination without abnormal findings Referrals Counseling Referral F32.A - Depression, unspecified, F41.9 - Anxiety disorder, unspecified Medications: New cyclobenzaprine 5 mg PO BEDTIME 30 tabs 0RF meloxicam 15 mg PO DAILY 30 tabs 0RF bupropion HCl 100 mg PO BID 60 tabs 1RF
[2025-04-09 11:34] VITALS: BP 130/62; PULSE 99; TEMP 36.3; O2SAT 96; BMI 32.5
--- OUTSIDE RECORDS SUMMARY | 2025-04-09 12:08 | XMS_ITS | Encounter Summary ---
Author Organization [facility]ly [facility] Address [address] [place] [id number] Care Team Providers Care [employer] Launch Commander Name Role Phone Unknown Primary Care Provider [phone] Encounter Details Date Type Department Care Team (Latest Contact Info) Description 06/15/2022 Hospital Encounter Raj Freed MD [address] [place] [address], [address] Division [place] [address] Social History Tobacco Use Types Packs/Day Years [...] documented as of this encounter Care Teams [employer] Launch Commander Relationship Specialty Start Date End Date Unknown Unknow Provider Address PCP - General 06/15/22 documented as of this encounter
--- OUTSIDE RECORDS SUMMARY | 2025-04-09 12:08 | XMS_ITS | Encounter Summary ---
Author Organization [facility] Address [address] [place] [address] Phone Care Team Providers Care Conveyor Monitor Name Role Phone Mark Garay MD Primary Care Provider [phone] Encounter Details Date Type Department Care Team (Late st Contact Info) Description 05/08/2024 Ancillary Orders [facility] [address] [place], [place] [id number] America Wilkinson CNM [address], [address] [place] [address] [email or web address] Encounter for supervision of other normal in [...] Assigned at Female 05/05/2022 7:35 PM EDT Legal Sex Female 4:11 PM EST Gender Identity Female 05/05/2022 7:35 PM EDT Sexual Orientation Straight 05/05/2022 7: 35 PM EDT documented as of this encounter Plan of Treatment Not on file documented as of this encounter Results * [...] fetus with normal fluid. Procedure Note Isidro Dale MD - 05/08/2024 Procedure: US OB GREATER [...] 3.1 cm and appears closed. America Wilkinson CN IMG US OBSTETRIC Final Result documented in this encounter Visit Diagnoses Diagnosis History of delivery Encounter for supervision of other normal in second trimester- Primary History of delivery Request for sterilization Migraine with aura and without status migrainosus, not intractable documented in this encounter Care Teams Conveyor Monitor Relationship Specialty Start Date End Date Mark Garay MD [address] [place] [address] [place] [address] PCP - General Internal Medicine 11/25/21 documented as of this encounter Additional Source Comments The information contained in this document represents components of the legal health record. It is not the complete legal health record.[facility]
--- OUTSIDE RECORDS SUMMARY | 2025-04-09 12:08 | XMS_ITS | Clinical Summary ---
Author Organization [facility] Address [address] [address] Phone Care Team Providers Care Animal Attendant Name Role Phone Mark Garay MD Primary Care Provider [phone] Allergies Active Allergy Reactions Criticality Noted Date Comments Animal Dander 12/18/2021 Ceftriaxone Shortness Of Breath,Swelling,Anaphylaxis,Hives High 12/10/2021 Cinnamon Shortness Of Breath,Swelling High 022 Penicillins Shortness Of Breath,Swelling,Anaphylaxis High 12/10/2021 Terbutaline Itching High 07/06/2022 Medications VENTOLIN HFA 90 mcg/actuation inhaler INHALE 2 PUFFS BY MOUTH NEEDED EVERY 4 TO 6 HOURS. 02/14/20 24 Active FLUoxetine (PROZAC) 20 MG capsule Take 1 capsule (20 mg total) by mouth daily. 30 capsule 1 07/27/20 24 Active Additional Information Patient not taking.Reported on 08/28/2024 dibucaine (NUPERCAINAL) 1 % ointment Apply 1 Application topically 2 (two) times a day as needed for pain (specific location in comments) (perineal area). 30 g 08/30/20 24 Active Additional Information Patient not taking.Reported on 03/29/2025 hydrocortisone (ANUSOL-HC) 2.5 % rectal cream Place 1 Application rectally as needed. 30 g 08/30/20 24 Active Additional Information Patient not taking.Reported on 03/29/2025 ibuprofen (ADVIL,MOTRIN) 600 MG tablet Take 1 tablet (600 mg total) by mouth every 6 (six) hours as needed for pain (specific location in comments). 30 tablet 08/30/20 24 Active ferrous sulfate 325 mg (65 mg [place] iron) tablet TAKE 1 TABLET BY MOUTH EVERY DAY WITH BREAKFAST 90 tablet 1 10/10/20 24 Active Additional Information Patient not taking.Reported on 03/29/2025 predniSONE (DELTASONE) 20 MG tablet Take 20 mg by mouth daily. 03/27/20 25 Active acetaminophen (TYLENOL) 500 MG tablet Take 500 mg by mouth as needed for pain (specific location in comments). 03/19/20 25 Active ALPRAZolam (XANAX) 0.5 MG tablet Take 1 tablet (0.5 mg total) by mouth once for 1 dose. 1 tablet 03/29/20 25 Active butalbital-acet aminophen-caffe ine (FIORICET, ESGIC) 50-325-40 mg per tabletIndicatio ns:Migraine with aura and without status migrainosus, not intractable Take 1 tablet by mouth every 4 (four) hours as needed for headache. If no relief after 30 min, may take a second tablet (no more than 12 tablets in 24 hr period) 20 tablet 1 04/30/20 24 025 Discontinu ed(No longer taking) vitamins with ferrous fumaric-Folic acid (TOM ) 28 mg iron- 800 mcg TabIndications: Unplanned Take 1 tablet (0.8 mg total) by mouth daily. 90 tablet 3 07/17/20 24 025 Discontinu ed(No longer taking) oxyCODONE 5 MG immediate release tablet Take 1 tablet (5 mg total) by mouth once for 1 dose. Partial fill ok 1 tablet 03/29/20 25 025 Hospital, Clinic, or Other Facility Administered Medication Ordered Dose Route Frequency Start Date End Date Status medroxyPROGESTERone (DEPO-PROVERA) IM injection syringe 150 mg 150 mg IM Every 3 months 03/29/2025 03/24/2026 Active medroxyPROGESTERone (DEPO-PROVERA) IM injection 150 mgIndications:Encounte r for contraceptive management, unspecified type 150 mg IM Every 3 months 03/29/2025 Acti ve Active Problems Problem Noted Date Diagnosed Date Encounter for contraceptive management Assessment & Plan (03/29/2025 12:57 PM EDT): Depo-Provera given today, she will return within the 3 months for insertion of either Kyleena or Mirena IUD Foot pain, bilateral 08/25/2024 Assessment & Plan (08/25/2024 12:11 PM EDT): A: Nerve pain likely due to compression from uterus on nerve pain, resolved with knee chest position P: Placed patient in knee chest position which resolved the nerve pain Asthma 01/28/2024 Overview (01/28/2024): Patient has an [...] Planning to make an intake appt at [facility]. Plan for plan PP - consider Psych consult for other medication option or [facility] for Moms consult Plan to make a plan before discharge and plan for early visit Assessment & Plan (08/14/2024 12:14 PM EDT): Feels a little more mellow with prozac. Does not have a therapist yet, but she is planning on doing a walk-in intake at the [facility] in [place]. EPDS 14, which is improved. She should have an early PPV. Assessment & Plan (07/27/2024 10:39 AM EDT): Repeated EPDS today, 18 (previously 22). Feels like Prozac isn't really doing anything. Advised higher dosage probably needed to see effect in and with dx of anxiety. Increased to 20 mg. Also recommended she try walking in to [facility] to request an intake for therapy - [...] open to trying someone else. Referral to [facility] placed. Assessment & Plan (05/08/2024 3:30 PM [...] migraines with aura for years. Sees a neurologistLou at [facility]. Has an appt at the end [...] time. Referral placed to her neurologist at [facility]. She has seen a chiropractor in the [...] 1st - 01/27 2nd - 05/04 at [facility], < 10,000 colonies 3rd - Assessment & [...] Problem Noted Date Diagnosed Date Resolved Date Vaginal delivery 08/30/2024 03/29/2025 Encounter for induction of labor 08/28/2024 03/29/2025 Assessment & Plan (08/28/2024 6:09 PM EDT): [...] open to nitrous, IV meds, hydrotherapy Anticipate Uterine contractions 08/25/2024 Assessment & Plan (08/25/2024 [...] (07/03/2024 11:50 AM EDT): Recently seen at [facility] with contractions. Resolved with hydration. Reports fibronectin [...] need Rx for vaginal progesterone at n.v. Request for sterilization 02/28/2024 Overview (04/24/2024): Consent [...] delivery. Discussed signing consents around 24-28 weeks. Supervision of normal 01/28/2024 08/30/2024 Overview (08/14/2024): [...] Depo if she decides against GBS neg Feeding Plan breast Baby Zelyana Assessment & Plan (08/28/2024 10:17 AM EDT): Paulette is here with her mom. She is ok but ready to have baby. Baby has been moving well. She has continued to have intermittent contractions. Would like to be induced. SVE today /2. Scheduled for induction this evening at 5 [...] days today based on bedside ultrasound at [facility] And backtracking, most of conceived a few [...] based on ultrasound 6 days ago at [facility], will set up a formal ultrasound to reassess and check cervical length is noted. Recommend calling our practice if her pain increases or there is any additional symptoms such as [facility] weeks of [facility] 07/24/2022 [...] symptom onset or positive test: 06/15/[address] [facility] (asymptomatic) Gestational age at diagnosis: 32 weeks ? ? Virtual visits for non-urgent care until COVID-19 infection status is resolved as defined by current [facility] policy: [email or web address]/hub/departments/emergency_preparedness/covi d19/c pphd78_uvkgeawy_vnummzad/infection_statuses_and_resolution_ ? ? 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 Transferred to [facility]. Discharged after 3 days with stable cervix at 4-5 cm 06/22/22 seen at [facility] for PTL, cervix remained 4-5 cm and [...] (07/03/2022 1:12 PM EDT): Was seen at [facility] the first week of June with contractions. Cervix remained 4-5 cm and she was discharged. Has not had contractions since then. Assessment & Plan (06/19/2022 4:27 PM EDT): She was hospitalized at [facility] for 3 days and was discharged 2 days ago after her cervical exam stabilized at 4-5 cm. She had BMTZ x 2. She is more comfortable today. Assessment & Plan (06/15/2022 2:32 PM EDT): A: 21 y.o. at 32w0d with contractions and cervical change since last exam Cat 1 FHR Intact membranes Covid pos P: - Recommended transfer of care to [facility] given cervical change since last exam and clear change in clinical presentation. Discussed with Dr. Kirkpatrick at [facility] and transfer accepted. - Administer [...] fluid. Baby has been moving well. SVE 50/-3 which is a change since her last exam at the end of April. Will go to [facility] for evaluation. Assessment & Plan (05/27/2022 1:08 [...] require ongoing closer surveillance. cx today unchanged: //-4 soft. SSE done: no bleeding, mild white [...] today, states it was bad, was at [facility] and felt like she had to pee. [...] treat. RTO for next PN visit. Margoth Bobby SNM Vaginal elizabeth 01/12/2022 01/27/2022 Assessment & [...] 02/25 PAP - thinks she had at [facility], record request sent 01/27--no records received. Per [...] discussed magnesium for comfort. Was seen at [facility] on 07/17 and at [facility] on 07/19 for labor checks d/t uncomfortable [...] smear - thinks she had it at [facility]. It isn't in the records, new record [...] anatomy scan 04/07 3.48. No intervention recommended M 03/16: CL 3.6 Assessment & Plan (01/28/2024 [...] Encounters Date Type Department Care Team Description 03/29/2025 9:20 AM EDT Office Visit [facility] [address] [place] [address] Noemi Lee MD Encounter for contraceptive management, unspecified type (Primary Dx); Migraine with aura and without status migrainosus, not intractable; Screening for cervical cancer 03/20/2025 Telephone [facility] [address] [place] [address] Margoth Botello CNM Appointment from Last 3 Months Immunizations Immunization Administration Dates Next Due Influenza Trivalent Preservative [...] Not Answered Alcohol Use Standard Drinks/Week Comments Yes 0 (1 standard drink = 0.6 oz [...] or tries to control you? No 08/28/2024 Comments No Sex and Gender Information Value Date Recorded Sex Assigned at Female 05/05/2022 7:35 PM EDT Legal Sex Female 4:11 PM EST Gender Identity Female 05/05/2022 7:35 PM EDT Sexual Orientation Straight 05/05/2022 7: 35 PM EDT Last Filed Vital Signs Vital Sign Reading Time Taken Comments Blood Pressure 122/70 03/29/2025 9:20 AM EDT Pulse 86 08/30/2024 11:00 AM EDT Temperature 36.6 ??C (97.9 ??F) 08/30/2024 11:00 AM E DT Respiratory Rate 16 08/30/2024 11:00 AM EDT Oxygen Saturation 97% 08/30/2024 11:00 AM EDT Inhaled Oxygen Concentration - - Weight 82.1 kg (181 lb) 03/29/2025 9:20 AM EDT Height 157.5 cm (5' 2 ) 03/29/2025 9:20 AM EDT Body Mass Index 33.11 03/29/2025 9:20 AM EDT Plan of Treatment Health Maintenance Due [...] SCREENING (On ce After 26 Yrs) Completed 03/29/2025 HEPATITIS A VACCINES Aged Out No long er eligible based on patient's age to complete this topic HIB VACCINES Aged Out No longer eligi ble based on patient's age to complete this topic MENINGOCOCCAL VACCINES (ACWY) Aged Out No longer eligible based on patient's age to complete this topic Medical Devices Not on file Procedures Procedure Name Priority Date/Time Associated Diagnosis Comments CHLAMYDIA TRACHOMATIS AND NEISSERIA GONORRHOEAE NUCLEIC ACID DETECTION Routine 03/29/2025 9:51 AM EDT Screening for cervical cancer POCT URINE HCG Routine 03/29/2025 9:50 AM EDT Encounter for contraceptive management, unspecified type PAP TEST Routine 03/30/2024 12:00 AM EDT HEPATITIS C ANTIBODY, QUALITATIVE Routine 02/28/2024 12:51 PM EDT Supervision of normal from Last 3 Months or Most Recently Relevant to Health Maintenance Results * Chlamydia Trachomatis and Neisseria Gonorrhoeae Nucleic Acid Detection (03/29/2025 9:51 AM EDT) CHLAMYDIA TRACHOMATIS Not Detected Not Detected [facility] NEISERIA GONORRHOEAE Not Detected Not Detected [facility] SPECIMEN TYPE URINE [facility] Urine (Urine) 03/29/2025 9:5 1 AM EDT 03/29/2025 3:15 PM EDT Noemi Lee MD NON CULTURE MICROBIOLOGY Final R esult Performing Organization Address City/[facility] Co de Phone Number [address] [address] * Poct Urine HCG (03/29/2025 9:50 AM EDT) HCG, urine Negative, Internal QCs acceptable Negative [facility] Other 03/29/2025 9:50 AM EDT Noemi Lee MD POINT OF CARE TEST ORDERABLES Fi nal Result Performing Organization Address [facility] de Phone Number [id number] [place] [address] * Pap Test (03/30/2024 12:00 AM EDT) 03/30/2024 03/31/2024 10: 45 AM EDT Narrative SEE NARRATIVE - 04/05/2024 3:25 PM EDT [address] [address] Boat Garnisher: Moon Tapia MD ?? 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 ??PAP SMEAR (THIN PREP) CE: SPECIMEN ADEQUACY: Satisfactory for evaluation; transformation zone present. INTERPRETATION: NEGATIVE FOR INTRAEPITHELIAL LESION OR MALIGNANCY. This specimen was analyzed by the automated ThinPrep Imaging System (Tech Cocktail Jason.) and the selected pruett were reviewed by a interior design principal. Electronically Signed Out By: ??SUZI Rojas(ASCP) The [...] PAP SMEAR (THIN PREP) CE Patient Name: ??DUDLEY VIOLA : ??2000 (Age: 23) Sex: ??F Institution: ??[facility] Location: ??[facility] Date of Collection: ??03/30/2024 Date of Reported: ??04/05/2024 15:25 Results to: America Wilkinson MSN us America Wilkinson CNM CYTOLOGY ORDERABLES Final Result SEE NARRATIVE * Hepatitis C antibody, qualitative (02/28/2024 12:51 PM EDT) HCV NON-REACTIV E NON-REACTI VE [facility] Blood 02/28/2024 12:5 1 PM EDT 02/28/2024 1:01 PM EDT Suzy Blue CNM LAB BLOOD ORDERABLES Final R esult [facility] [address] [place] [address] from Last 3 Months or Most Recently Relevant to Health Maintenance [place] [address] [place] [address] [facility] [facility] [place] [address] [place] [address] [address] [place] [address] [address] [facility] [place] [address] [place] [address] [place] [address] [place] [address] ACO [facility] ACO Advance Directives For more information, please contact: [phone] (9AM - 5PM [facility], Wednesday-Wednesday) * Full Code (Latest Code Status [...] Code Status Confirmed With: Patient Care Teams Animal Attendant Relationship Specialty Start Date End Date Mark Garay MD [address] [place] [address] [place] [address] PCP - General Internal Medicine 11/25/21 Additional Source Comments The information contained in this document represents components of the legal health record. It is not the complete legal health record.[facility]
--- OUTSIDE RECORDS SUMMARY | 2025-04-09 12:08 | XMS_ITS | Clinical Summary ---
Author Organization [facility] Address [address] [place] [address] Care Team Providers Care Cutter Plastics Rolls Name Role Phone Unknown Primary Care Provider [phone] Allergies Active Allergy Reactions Criticality Noted Date [...] series) 2017 Pap Smear (Ages 21-65) 2019 COVID-19 Vaccine (1 - 2023-2 5 season) 2024 Influenza Vaccine 06/22/2025 Pneumococcal Vaccine: Pediat soo (0-5 Years) and At-Risk Patients (6 to 49 Years) Aged Out No longer eligible b ased on patient's age to complete this topic Insurance MEDICAID OUT OF STATE [facility] Advance Directives * Full Code (Latest Code Status on File) Date Activated Date Inactivated Comments 06/15/2022 8:26 PM Care Teams Cutter Plastics Rolls Relationship Specialty Start Date End Date Unknown Unknow Provider Address PCP - General 06/15/22
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
== END 2025-04-09 12:05 | disposition home or self-care (01) ==
LOC: HO.HMCH 11:26
DX: J45.909 Unspecified asthma, uncomplicated (principal); F41.9 Anxiety disorder, unspecified; F32.A Depression, unspecified; R06.02 Shortness of breath; M54.2 Cervicalgia; M54.9 Dorsalgia, unspecified; R51.9 Headache, unspecified; M79.602 Pain in left arm

== ENCOUNTER → 2025-04-09 11:25 | Outpatient (BNVA) | payer OTHER, SELFPAY | PROVIDERS: PCP Internal Medicine | DX: M54.2 Cervicalgia (principal); R51.9 Headache, unspecified; M79.602 Pain in left arm; J45.909 Unspecified asthma, uncomplicated; F41.9 Anxiety disorder, unspecified; F32.A Depression, unspecified | CPT/HCPCS: 99212 ==

== ENCOUNTER 2025-04-10 09:15 | Outpatient (AMB) | payer OTHER, SELFPAY ==
--- OUTSIDE RECORDS SUMMARY | 2025-04-10 09:57 | XMS_ITS | Clinical Summary ---
Author Organization [facility] Address [address] [place] [address] Care Team Providers Care Pharmacy General Manager Name Role Phone Unknown Primary Care Provider [phone] Allergies Active Allergy Reactions Criticality Noted Date [...] topic Insurance MEDICAID OUT OF STATE [facility] Advance Directives * Full Code (Latest Code Status on File) Date Activated Date Inactivated Comments 06/15/2022 8:26 PM Care Teams Pharmacy General Manager Relationship Specialty Start Date End Date Unknown Unknow Provider Address PCP - General 06/15/22
--- OUTSIDE RECORDS SUMMARY | 2025-04-10 09:57 | XMS_ITS | Clinical Summary ---
Author Organization [facility] Address [address] [address] Phone Care Team Providers Care Law Enforcement Instructor Name Role Phone Mark Garay MD Primary Care Provider [phone] Allergies Active Allergy Reactions Criticality Noted Date [...] Active ferrous sulfate 325 mg (65 mg spirit [place] iron) tablet TAKE 1 TABLET BY MOUTH [...] Planning to make an intake appt at [facility]. Plan for plan PP - consider Psych consult for other medication option or [facility] for Moms consult Plan to make a plan before discharge and plan for early visit Assessment & Plan (08/14/2024 12:14 PM EDT): Feels a little more mellow with prozac. Does not have a therapist yet, but she is planning on doing a walk-in intake at the [facility] in [place]. EPDS 14, which is improved. She should have an early PPV. Assessment & Plan (07/27/2024 10:39 AM EDT): Repeated EPDS today, 18 (previously 22). Feels like Prozac isn't really doing anything. Advised higher dosage probably needed to see effect in and with dx of anxiety. Increased to 20 mg. Also recommended she try walking in to [facility] to request an intake for therapy - [...] open to trying someone else. Referral to [facility] placed. Assessment & Plan (05/08/2024 3:30 PM [...] aura for years. Sees a neurologistLou at [facility]. Has an appt at the [...] time. Referral placed to her neurologist at [facility]. She has seen a chiropractor in [...] 1st - 01/27 2nd - 05/04 at [facility], < 10,000 colonies 3rd - Assessment [...] (07/03/2024 11:50 AM EDT): Recently seen at [facility] with contractions. Resolved with hydration. Reports [...] days today based on bedside ultrasound at [facility] And backtracking, most of conceived a [...] based on ultrasound 6 days ago at [facility], will set up a formal ultrasound to reassess and check cervical length is noted. Recommend calling our practice if her pain increases or there is any additional symptoms such as bleeding Uterine contractions at [facility] than 20 weeks of gestation 07/24/2022 [...] symptom onset or positive test: 06/15/22 at [facility] (asymptomatic) Gestational age at diagnosis: 32 weeks ? ? Virtual visits for non-urgent care until COVID-19 infection status is resolved as defined by current [facility] policy: https://pulse.[facility].org/hub/departments/emergency_preparedness/covi d19/c cnja80_mydtqjyc_kehjqevn/infection_statuses_and_resolution_ ? ? Offer Monoclonal antibody therapy if appropriate: o Racking Technician - [facility] [place] Antibodies ([employer].ng) Click Browse Manuals >> [facility] MGPO Departmental Documents & Policies >> OB-REGIONAL ENVIRONMENTAL MANAGER Department Documents >> COVID-19 >> OB related [...] 06/15 contractions with cervical dilation. Transferred to [facility]. Discharged after 3 days with stable cervix at 4-5 cm 06/22/22 seen at [facility] for PTL, cervix remained 4-5 cm [...] (07/03/2022 1:12 PM EDT): Was seen at [facility] the first week of June with contractions. Cervix remained 4-5 cm and she was discharged. Has not had contractions since then. Assessment & Plan (06/19/2022 4:27 PM EDT): She was hospitalized at [facility] for 3 days and was discharged 2 days ago after her cervical exam stabilized at 4-5 cm. She had BMTZ x 2. She is more comfortable today. Assessment & Plan (06/15/2022 2:32 PM EDT): A: 21 y.o. at 32w0d with contractions and cervical change since last exam Cat 1 FHR Intact membranes Covid pos P: - Recommended transfer of care to [facility] given cervical change since last exam and clear change in clinical presentation. Discussed with Dr. Kirkpatrick at [facility] and transfer accepted. - Administer betamethasone for [...] the end of April. Will go to [facility] for evaluation. Assessment & Plan (05/27/2022 [...] today, states it was bad, was at [facility] and felt like she had to [...] 02/25 PAP - thinks she had at [facility], record request sent 01/27--no records received. [...] discussed magnesium for comfort. Was seen at [facility] on 07/17 and at [facility] on 07/19 for labor checks d/t [...] smear - thinks she had it at [facility]. It isn't in the records, new [...] Visit [facility] [address] [place] [address] Noemi Lee MD Encounter for contraceptive management, unspecified type (Primary Dx); Migraine with aura and without status migrainosus, not intractable; Screening for cervical cancer 03/20/2025 Telephone [facility] [address] [place] [address] Margoth Botello CNM Appointment from Last 3 [...] EDT) CHLAMYDIA TRACHOMATIS Not Detected Not Detected [facility] NEISERIA GONORRHOEAE Not Detected Not Detected [facility] SPECIMEN TYPE URINE [facility] Urine (Urine) 03/29/2025 9:5 1 AM EDT 03/29/2025 3:15 PM EDT Noemi Lee MD NON CULTURE MICROBIOLOGY Final R esult Performing Organization Address City/[facility] Co de Phone Number [address] [address] * Poct Urine HCG (03/29/2025 9:50 AM EDT) HCG, urine Negative, Internal QCs acceptable Negative [facility] Other 03/29/2025 9:50 AM EDT Noemi Lee MD POINT OF CARE TEST ORDERABLES Fi nal Result Performing Organization Address [facility] de Phone Number [id number] [place] [address] * Pap Test (03/30/2024 12:00 AM EDT) 03/30/2024 03/31/2024 10: 45 AM EDT Narrative SEE NARRATIVE - 04/05/2024 3:25 PM EDT [address] [address] Varnish Finisher: Moon Tapia MD ?? REGIONAL ENVIRONMENTAL MANAGER Cytology Report FINAL DIAGNOSIS A. ??PAP SMEAR (THIN PREP) CE: SPECIMEN ADEQUACY: Satisfactory for evaluation; transformation zone present. INTERPRETATION: NEGATIVE FOR INTRAEPITHELIAL LESION OR MALIGNANCY. This specimen was analyzed by the automated ThinPrep Imaging System ([employer] Jason.) and the selected pruett were reviewed by a manufacturing cost estimator. Electronically Signed Out By: ??SUZI Rojas(ASCP) The [...] : ??2000 (Age: 23) Sex: ??F Institution: ??[facility] Location: ??[facility] Date of Collection: ??03/30/2024 Date of Reported: ??04/05/2024 15:25 Results to: America Wilkinson MSN us America Wilkinson CNM CYTOLOGY ORDERABLES Final Result SEE NARRATIVE * Hepatitis C antibody, qualitative (02/28/2024 12:51 PM EDT) HCV NON-REACTIV E NON-REACTI VE [facility] Blood 02/28/2024 12:5 1 PM EDT 02/28/2024 1:01 PM EDT Suzy Blue CNM LAB BLOOD ORDERABLES Final R esult [facility] [address] [place] [address] from Last 3 Months or Most Recently Relevant to Health Maintenance [place] [address] [place] [address] [employer] [facility] [place] [address] [place] [address] [place] [address] [place] [address] [employer] [facility] [place] [address] [place] [address] [place] [address] [place] [address] A[employer] [facility] ACO Advance Directives For more information, please contact: [phone] (9AM - 5PM [facility], Wednesday-Wednesday) * Full Code (Latest Code Status [...] Code Status Confirmed With: Patient Care Teams Law Enforcement Instructor Relationship Specialty Start Date End Date Mark Garay MD [address] [place] [address] [place] [address] PCP - General Internal Medicine 11/25/21 Additional Source Comments The information contained in this document represents components of the legal health record. It is not the complete legal health record.[facility]
--- OUTSIDE RECORDS SUMMARY | 2025-04-10 09:57 | XMS_ITS | Encounter Summary ---
Author Organization [facility] Address [address] [place] [address] Phone Care Team Providers Care Gut Carrier Name Role Phone Mark Garay MD Primary Care Provider [phone] Encounter Details Date Type Department Care Team (Late st Contact Info) Description 05/08/2024 Ancillary Orders [facility] [address] [place], [place] [id number] America Wilkinson CNM [address], [address] [place] [address] [email or web address] Encounter for supervision of other normal in [...] intractable documented in this encounter Care Teams Gut Carrier Relationship Specialty Start Date End Date Mark Garay MD [address] [place] [address] [place] [address] PCP - General Internal Medicine 11/25/21 documented as of this encounter Additional Source Comments The information contained in this document represents components of the legal health record. It is not the complete legal health record.[facility]
--- NOTE | 2025-04-10 10:11 | MHC.OFFWIV ---
Intake Vital Signs 04/10/25 10:13 Weight 178 lb BP 110/72 Blood Pressure Location Lt brachial Position Sitting Pulse 94 Pulse Source Pulse Oximeter Temp 98.3 F Temp Source Oral Pulse Oximetry (%) 98 Oxygen Delivery Method Room Air Intake Visit Reasons: EP Sore throat Intake Note: Patient here for sore throat and right ear pain. Patient Tobacco Use Status: Never used Tobacco Allergies Penicillins [PENICILLINS] Allergy (Intermediate, Verified 04/10/25 10:13) HIVES ceftriaxone [CEFTRIAXONE] Allergy (Unknown, Verified 04/10/25 10:13) HIVES SOB, anaphylaxis cinnamon [CINNAMON] Allergy (Unknown, Verified 04/10/25 10:13) HIVES penicillin G Allergy (Unknown, Verified 04/10/25 10:13) anaphylaxis Medication List - Last Reconciled 04/10/25 by Adam Abdi MD albuterol sulfate 90 mcg/actuation 1 inh inhalation QID bupropion HCl 100 mg PO BID cyclobenzaprine 5 mg PO BEDTIME meloxicam 15 mg PO DAILY HPI EP Sore throat HPI Details History - The patient is a 24-year-old female presenting with a persistent sore throat and hoarseness. - The sore throat and difficulty speaking have been ongoing for two weeks, with no reported improvement. - The patient experiences hoarseness, making it difficult to speak. - No associated fever, chills, nausea, or vomiting reported. - Previous treatment with prednisone was completed without significant relief of symptoms. - Negative strep test was previously conducted, ruling out Streptococcal pharyngitis. - The inflammation appears to be localized to the larynx rather than the pharynx, with no noted erythema in the throat. - No reported recent episodes of vomiting or alcohol consumption that might influence symptoms. - The patient experiences sleep disturbances due to coughing and pain. Problem List - Laryngitis acute - exacerbation of asthma Patient Instructions - Take prescribed antibiotics and prednisone as directed. - Gargle with warm water mixed with a half teaspoon of salt regularly. - Follow the prescribed treatment regimen and note any symptom changes. - Contact the clinic if symptoms worsen. Review of Systems - General: No fever no chills - Neurological: No headaches no dizziness - Ear nose throat:no hearing difficulty no ear pain - Cardiovascular: No syncope, no chest pain, no palpitations - Gastrointestinal: No nausea vomiting or diarrhea Physical Exam General: No acute distress HEENT: Hoarseness, difficulty speaking, uvula midline , no pharyngeal erythema , ears within Normal limit Respiratory system: Able to talk in full sentences, no audible wheeze Cardiovascular: S1-S2 regular in rate and rhythm Extremities: No new findings BOATHOUSE KEEPER: Alert awake oriented x3 motor sensory intact Skin: Normal turgor COUNTS INCLUDE 234 BEDS AT THE [facility] Medical History Anemia Surgical History History of wisdom tooth extraction Family History Father No problems noted. Mother No problems noted. Social History Housing: Apartment Alcohol intake: never Patient Tobacco Use Status: Never used Tobacco e-Cigarette/Vaping Use: Never Used Second Hand Smoke Exposure: No service: No Current occupational status: employed Current occupational exposures/hazards: No Cognitive needs: No Hearing needs: No Vision needs: Yes Physical Exam Vital Signs: Last Vital Signs Temp 98.3 F 04/10/25 10:13 Pulse 94 04/10/25 10:13 BP 110/72 04/10/25 10:13 Pulse Ox 98 04/10/25 10:13 Oxygen Delivery Method Room Air 04/10/25 10:13 Results AMB Rapid Strep AMB Rapid Strep Negative Last Edit by CHERYLE Veloz on 04/10/25 10:28 Results Reviewed Results Reviewed: Laboratory Last Values Strep Scn [facility] Clinic Negative 04/10/25 10:28 Assessment & Plan Assessment & Plan (1) Acute laryngitis: Code(s): J04.0 - Acute laryngitis (2) Asthma exacerbation: Comment: Patient is not hypoxic or tachypneic however she is utilizing her rescue inhaler every 4-6 hours which is significantly unusual for her. Code(s): J45.901 - Unspecified asthma with (acute) exacerbation Qualifiers: Asthma severity: unspecified severity Asthma persistence: unspecified Qualified Code(s): J45.901 - Unspecified asthma with (acute) exacerbation Plan History - The patient is a 24-year-old female presenting with a persistent sore throat and hoarseness. - The sore throat and difficulty speaking have been ongoing for two weeks, with no reported improvement. - The patient experiences hoarseness, making it difficult to speak. - No associated fever, chills, nausea, or vomiting reported. - Previous treatment with prednisone was completed without significant relief of symptoms. - Negative strep test was previously conducted, ruling out Streptococcal pharyngitis. - The inflammation appears to be localized to the larynx rather than the pharynx, with no noted erythema in the throat. - No reported recent episodes of vomiting or alcohol consumption that might influence symptoms. - The patient experiences sleep disturbances due to coughing and pain. Problem List - Laryngitis acute - exacerbation of asthma Patient Instructions - Take prescribed antibiotics and prednisone as directed. - Gargle with warm water mixed with a half teaspoon of salt regularly. - Follow the prescribed treatment regimen and note any symptom changes. - Contact the clinic if symptoms worsen. Orders: Orders AMB Rapid Strep Screen Today Dorinda Casey PA-C Z13.9 - Encounter for screening, unspecified Medications: New prednisone 20 mg PO DAILY 5 days 5 tabs 0RF Adam Abdi MD azithromycin Take 2 tablets today then 1 daily 250 mg PO ONCE 5 days 6 tabs 0RF Adam Abdi MD J06.9 - Acute upper respiratory infection, unspecified Coding Level of Care Code Est Pt Level 3 (99210) Diagnoses Acute laryngitis J04.0 Exacerbation of asthma, unspecified asthma severity, unspecified whether persistent J45.901 Asthma severity: unspecified severity Asthma persistence: unspecified
[2025-04-10 10:13] VITALS: BP 110/72; PULSE 94; TEMP 36.8; O2SAT 98
== END 2025-04-10 10:54 | disposition home or self-care (01) ==
PROVIDERS: Visit Provider Internal Medicine
DX: J04.0 Acute laryngitis (principal); J45.901 Unspecified asthma with (acute) exacerbation; Z13.9 Encounter for screening, unspecified

== ENCOUNTER → 2025-04-10 09:15 | Outpatient (BNVA) | payer OTHER, SELFPAY | PROVIDERS: Visit Provider Internal Medicine | DX: J04.0 Acute laryngitis (principal); J45.901 Unspecified asthma with (acute) exacerbation | CPT/HCPCS: 87880; 99212 ==